=== PATIENT | female | born 1955 | race Caucasian/White ===

== ENCOUNTER → 2016-12-15 | Outpatient (CLI) | payer BC ==
--- NOTE | 2016-12-15 09:56 | MM ---
Reason for exam: additional evaluation requested from prior study. Last mammogram was performed 2 years ago. History: Patient is postmenopausal, has history of breast cancer at age 48, and had first child at age 30. Family history of breast cancer in maternal aunt at age 60. Excisional biopsy of the left breast, August 26, 2004. Malignant stereotactic core biopsy of the left breast, August 12, 2004. Lumpectomy of the left breast, 2004. Radiation therapy of the left breast, 2004. Core biopsy of the left breast. Taking tamoxifen for 5 years beginning at age 50. Physical Findings: Nurse did not find any significant physical abnormalities on exam. MG 3D Diag Mammo W/Cad JOVITA Bilateral CC and MLO view(s) were taken. Prior study comparison: December 04, 2014, bilateral MG diagnostic mammo w CAD JOVITA. July 18, 2013, CAD bilateral diagnostic mammogram. There are scattered fibroglandular densities. Finding: Architectural distortion in the left breast. No significant changes in finding since December 04, 2014 and July 18, 2013. These results were verbally communicated with the patient and result sheet given to the patient on 12/15/16. ASSESSMENT: Benign, BI-RAD 2 RECOMMENDATION: Follow-up diagnostic mammogram of both breasts in 1 year.
== END | disposition home or self-care (01) ==
LOC: RADMAMWWP 08:27
PROVIDERS: ATTEND Obstetrics & Gynecology
DX: R92.8 Other abnormal and inconclusive findings on diagnostic imaging of breast (principal)
CPT/HCPCS: G0204; G0279

== ENCOUNTER → 2016-12-15 | Outpatient (CLI) | payer BC ==
--- NOTE | 2016-12-15 14:08 | BD ---
EXAMINATION TYPE: MG DEXA axial skeleton. DATE OF EXAM: 12/15/2016 COMPARISON: NONE CLINICAL HISTORY: Postmenopausal female. Height: 5 FT 2 IN Weight: 128 FRAX RISK QUESTIONS: Alcohol (3 or more units per day): NO Family History (Parent hip fracture): YES Glucocorticoids (More than 3mos): NO (Ex: prednisone, prednisolone, methylprednisolone, dexamethasone, and hydrocortisone). History of Fracture in Adulthood: Secondary Osteoporosis: 1. Type 1 Diabetes: NO 2. Hyperthyroidism: NO 3. Menopause before 45: NO 4. Malnutrition: NO 5. Chronic liver disease: NO Rheumatoid Arthritis: NO Current Tobacco Use: NO RISK FACTORS HISTORY OF: Drink Alcohol: RARE GLASS OF WINE Active: YES Postmenopausal woman: EARLY 50'S MEDICATIONS: Thyroid Medications: YES Which medication: SYNTHROID How Lon YEARS Osteoporosis Medications: YES Which medication: FOSAMAX How Lon YRS Additional Medications: FOSAMAX, SYNTHROID,ATORVASTATIN, Additional History: BREAST CANCER 2004 RADIATION EXAM MEASUREMENTS: Bone mineral densitometry was performed using the [employer] System. Bone mineral density as measured about the Lumbar spine is: ----- L1-L4(G/cm2): 0.976 T Score Values are as follows: ----- L2: -2.0 ----- L3: -1.4 ----- L4: -2.0 ----- L1-L4: -1.7 Bone mineral density has: Decreased -4.4% since study of: 2013 Bone mineral density about the R hip (g/cm2): 0.650 Bone mineral density about the L hip (g/cm2): 0.670 T Score values are as follows: -----R Neck: -2.8 -----L Neck: -2.6 -----R Total: -2.3 -----L Total: -2.3 Bone mineral density has: Decreased -2.6% since study of: 2013 IMPRESSION: Osteoporosis (T Score less than -2.5) as noted by T Score values at the There is increased fracture risk and therapy is usually indicated based on age. Re-Screen 1-2 years. NOTE: T-SCORE=SD OF THE YOUNG ADULT MEAN.
== END | disposition home or self-care (01) ==
LOC: RADBDWWP 08:30
PROVIDERS: ATTEND Family Medicine
DX: M85.88 Other specified disorders of bone density and structure, other site (principal); Z88.2 Allergy status to sulfonamides
CPT/HCPCS: 77080

== ENCOUNTER → 2017-01-24 | Outpatient (CLI) | payer BC ==
[~2017-01-24] MED LIST: DENOSUMAB 60 MG/ML 1 ML SYRINGE SQ ONE
[2017-01-24 08:03] VITALS: BP 102/63; PULSE 61; RESP 16; TEMP 97.8
== END ==
LOC: PROCWHC3 07:38
PROVIDERS: ATTEND Family Medicine
DX: M81.0 Age-related osteoporosis without current pathological fracture (principal)
CPT/HCPCS: 96372; J0897

== ENCOUNTER 2017-08-01 22:00 | Emergency (ER) | payer BC ==
[2017-08-01] MEDS ORDERED: IPRATROPIUM-ALBUTEROL 3 ML NEB INHALATION STA (22:45)
--- NOTE | 2017-08-01 23:21 | XR ---
EXAM: XR Chest, 2 Views CLINICAL HISTORY: Reason: Pain TECHNIQUE: Frontal and lateral views of the chest. COMPARISON: 11/28/15 FINDINGS: Heart size borderline. No overt edema, consolidation or other acute cardiopulmonary process. IMPRESSION: No acute cardiopulmonary findings.
--- NOTE | 2017-08-01 23:25 | ED ---
URI HPI - General Chief Complaint: Upper Respiratory Infection Stated Complaint: chest congestion Time Seen by Provider: 08/01/17 22:31 Source: patient, RN notes reviewed, old records reviewed Mode of arrival: ambulatory - History of Present Illness Initial Comments: Patient is a 61 year old female with cough and congestion for one week. She has had intermittent fever, and took motrin prior to arrival. She states she has chest wall pain due to coughing. She denies any nausea, vomiting, chest pain, SOB. She states that she has a sore throat and sinus congestion as well. No history of smoking, she reports she is otherwise healthy. Denies any leg swelling, back pain, peripheral paresthesias. - Related Data Home Medications Medication Instructions Recorded Confirmed Atorvastatin [Lipitor] 10 mg PO HS 04/25/14 08/01/17 Levothyroxine Sodium [Synthroid] 25 mcg PO DAILY 04/25/14 08/01/17 Previous Rx's Medication Instructions Recorded Albuterol Inhaler [Ventolin Hfa 1 - 2 puff INHALATION Q6HR PRN #1 08/01/17 Inhaler] inhaler Azithromycin [Zithromax Z-pack] 0 mg PO DIRECTED #6 tab 08/01/17 Promethazine/Dextromethorphan 5 ml PO TID #120 ml 08/01/17 [Phenergan DM Syrup] methylPREDNISolone Dose Pack 4 mg PO DIRECTED #21 package 08/01/17 [Medrol Dose Pack] Allergies Allergy/AdvReac Type Severity Reaction Status Date / Time Sulfa (Sulfonamide Allergy Rash/Hives/ Verified 08/01/17 22:32 Antibiotics) Fever Review of Systems ROS Statement: Those systems with pertinent positive or pertinent negative responses have been documented in the HPI. ROS Other: All systems not noted in ROS Statement are negative. Past Medical History Past Medical History: Cancer, Hyperlipidemia, Hypertension, Thyroid Disorder Additional Past Medical History / Comment(s): breast ca History of Any Multi-Drug Resistant Organisms: None Reported Past Surgical History: Breast Surgery Past Psychological History: No Psychological Hx Reported Smoking Status: Never smoker Past Alcohol Use History: Rare Past Drug Use History: None Reported General Exam - General Exam Comments Initial Comments: This cody 61 year old female, no distress. General appearance: alert, in no apparent distress Head exam: Present: atraumatic, normocephalic, normal inspection Eye exam: Present: normal appearance, PERRL, EOMI. Absent: scleral icterus, conjunctival injection, periorbital swelling ENT exam: Present: normal exam, mucous membranes moist Neck exam: Present: normal inspection. Absent: tenderness, meningismus, lymphadenopathy Respiratory exam: Present: normal lung sounds bilaterally, other (Patient upper airways sound tight and congested. ). Absent: respiratory distress, wheezes, rales, rhonchi, stridor Cardiovascular Exam: Present: regular rate, normal rhythm, normal heart sounds. Absent: systolic murmur, diastolic murmur, rubs, gallop, clicks GI/Abdominal exam: Present: soft, normal bowel sounds. Absent: distended, tenderness, guarding, rebound, rigid Extremities exam: Present: normal inspection, full ROM, normal capillary refill. Absent: tenderness, pedal edema, joint swelling, calf tenderness Back exam: Present: normal inspection Neurological exam: Present: alert, oriented X3, CN II-XII intact Psychiatric exam: Present: normal affect, normal mood Skin exam: Present: warm, dry, intact, normal color. Absent: rash Course Vital Signs 08/01/17 08/01/17 08/01/17 22:19 22:58 23:05 Temperature 97.6 F Pulse Rate 67 84 88 Respiratory 18 Rate Blood Pressure 90/50 O2 Sat by Pulse 98 Oximetry 08/01/17 08/01/17 23:17 23:45 Temperature 97.3 F L Pulse Rate 69 Respiratory 20 18 Rate Blood Pressure 106/62 O2 Sat by Pulse 99 Oximetry Medical Decision Making - Medical Decision Making Patient reevaluated after breathing treatment, and reports she feels better. Influenza testing is negative. Patient CXR was reviewed and negative for any acute process. Veenatietrudy has dry staccato cough throughout ED stay. Patient will be treated for bronchitis with Zpak, medrol dose pack, inhaler, and cough syrup. Given dose of cough syrup in ED. PAtient understands treatment plan and will comply, discussed follow up with PCP and return parameters discussed. - Lab Data Lab Results 08/01/17 Range/Units 22:54 Influenza Type A RNA Not Detected (Not Detectd) Influenza Type B (PCR) Not Detected (Not Detectd) - Radiology Data Radiology results: report reviewed Interpreted by me: CXR reviewed and within normal limits. Disposition Clinical Impression: Bronchitis Disposition: HOME SELF-CARE Condition: Good Instructions: Acute Bronchitis (ED) Additional Instructions: Patient has a rest, increase fluids. Take the medications as prescribed. Return to the emergency department if any alarming signs or symptoms occur. Prescriptions: Albuterol Inhaler [Ventolin Hfa Inhaler] 1 - 2 puff INHALATION Q6HR PRN #1 inhaler PRN Reason: Shortness Of Breath Azithromycin [Zithromax Z-pack] 0 mg PO DIRECTED #6 tab methylPREDNISolone Dose Pack [Medrol Dose Pack] 4 mg PO DIRECTED #21 package Promethazine/Dextromethorphan [Phenergan DM Syrup] 5 ml PO TID #120 ml Referrals: Reese Olivares MD [Primary Care Provider] - 1-2 days Time of Disposition: 23:23
[2017-08-01 23:47] VITALS: BP 106/62; PULSE 69; RESP 18; TEMP 97.3
== END 2017-08-01 23:45 | disposition home or self-care (01) ==
LOC: EC 22:00
DX: J40 Bronchitis, not specified as acute or chronic (principal); E78.5 Hyperlipidemia, unspecified; E07.9 Disorder of thyroid, unspecified; Z85.3 Personal history of malignant neoplasm of breast; Z79.899 Other long term (current) drug therapy; Z88.2 Allergy status to sulfonamides
CPT/HCPCS: 71046; 87502; 94640; 99284

== ENCOUNTER 2017-11-27 00:04 | Emergency (ER) | payer BC ==
--- NOTE | 2017-11-27 01:08 | XR ---
EXAMINATION TYPE: XR chest 2V DATE OF EXAM: 11/27/2017 COMPARISON: 08/01/2017 HISTORY: Cough and congestion TECHNIQUE: Frontal and lateral views of the chest are obtained. FINDINGS: There is no heart failure nor confluent pneumonic infiltrate. Costophrenic angles are kristen r. Bony thorax is intact. Heart appears normal. IMPRESSION: Normal chest. No change.
[2017-11-27] MEDS ORDERED: AZITHROMYCIN 500 MG TAB PO STA (01:34)
--- NOTE | 2017-11-27 01:34 | ED ---
ENT HPI - General Chief complaint: ENT Stated complaint: congestion Time Seen by Provider: 11/27/17 00:21 Source: patient Mode of arrival: ambulatory Limitations: no limitations - History of Present Illness Initial comments: 62-year-old female patient presents to the emergency department today with complaints of cough, nasal congestion, facial pressure, and ear pain. Patient states that she has been sick with these symptoms for the last 8-10 days. Patient states that the cough seems to be worsening. States that she was coughing up yellow sputum. Patient states that she has had yellow nasal drainage as well. Patient states recently she has had fevers as high as 10 1F at home. She denies any headache, dizziness, shortness of breath, chest pain, numbness, or tingling. Patient denies any sick contacts. Patient denies any recent rash, abdominal pain, nausea, vomiting, diarrhea, constipation, back pain , hematuria, dysuria, urinary urgency, urinary frequency, headache, visual changes, or any other complaints. - Related Data Home Medications Medication Instructions Recorded Confirmed Atorvastatin [Lipitor] 10 mg PO HS 04/25/14 08/01/17 Levothyroxine Sodium [Synthroid] 25 mcg PO DAILY 04/25/14 08/01/17 Previous Rx's Medication Instructions Recorded Albuterol Inhaler [Ventolin Hfa 1 - 2 puff INHALATION Q6HR PRN #1 08/01/17 Inhaler] inhaler Azithromycin [Zithromax Z-pack] 0 mg PO DIRECTED #6 tab 08/01/17 Promethazine/Dextromethorphan 5 ml PO TID #120 ml 08/01/17 [Phenergan DM Syrup] methylPREDNISolone Dose Pack 4 mg PO DIRECTED #21 package 08/01/17 [Medrol Dose Pack] Azithromycin [Zithromax Z-pack] 0 mg PO DIRECTED #6 tab 11/27/17 Promethaz-Cod 6.25-10 mg/5 ml 5 ml PO Q6HR PRN #60 ml 11/27/17 [Phenergan with Codeine] Allergies Allergy/AdvReac Type Severity Reaction Status Date / Time Sulfa (Sulfonamide Allergy Rash/Hives/ Verified 11/27/17 00:09 Antibiotics) Fever Review of Systems ROS Statement: Those systems with pertinent positive or pertinent negative responses have been documented in the HPI. ROS Other: All systems not noted in ROS Statement are negative. Past Medical History Past Medical History: Cancer, Hyperlipidemia, Hypertension, Thyroid Disorder Additional Past Medical History / Comment(s): breast ca History of Any Multi-Drug Resistant Organisms: None Reported Past Surgical History: Breast Surgery Past Psychological History: No Psychological Hx Reported Smoking Status: Never smoker Past Alcohol Use History: Rare Past Drug Use History: None Reported General Exam Limitations: no limitations General appearance: alert, in no apparent distress, other (This is a well- developed, well-nourished adult female patient in no acute distress. Vital signs upon presentation are temperature 98.3F, pulse 63, respirations 16, blood pressure 117/56, pulse ox 97% on room air.) Eye exam: Present: normal appearance, PERRL, EOMI. Absent: scleral icterus, conjunctival injection, periorbital swelling ENT exam: Present: normal exam, normal oropharynx, mucous membranes moist, TM's normal bilaterally, other (There is frontal and maxillary sinus tenderness.) Neck exam: Present: normal inspection. Absent: tenderness, meningismus, lymphadenopathy Respiratory exam: Present: normal lung sounds bilaterally. Absent: respiratory distress, wheezes, rales, rhonchi, stridor Cardiovascular Exam: Present: regular rate, normal rhythm, normal heart sounds. Absent: systolic murmur, diastolic murmur, rubs, gallop, clicks GI/Abdominal exam: Present: soft, normal bowel sounds. Absent: distended, tenderness, guarding, rebound, rigid Neurological exam: Present: alert, oriented X3, CN II-XII intact Psychiatric exam: Present: normal affect, normal mood Skin exam: Present: warm, dry, intact, normal color. Absent: rash Course Vital Signs 11/27/17 11/27/17 00:06 01:48 Temperature 98.3 F 98.0 F Pulse Rate 63 72 Respiratory 16 18 Rate Blood Pressure 117/56 121/59 O2 Sat by Pulse 97 98 Oximetry Medical Decision Making - Medical Decision Making 62-year-old female patient presents to the emergency department today for evaluation of cough and nasal congestion. Physical examination is unremarkable. Lungs are clear to auscultation with good air movement. Patient' s vital signs are stable. No current fever. Chest x-ray was obtained and shows no acute cardiopulmonary process. Patient has had symptoms for the last 10 days as well as recent fevers. We'll treat patient for acute sinusitis with azithromycin. She'll be given a cough suppressant medication. Return parameters were discussed in detail. She is instructed to follow-up with her primary care physician for recheck in 1-2 days. She verbalizes understanding and agrees with this plan. - Lab Data Lab Results 11/27/17 Range/Units 00:54 Influenza Type A RNA Not Detected (Not Detectd) Influenza Type B (PCR) Not Detected (Not Detectd) - Radiology Data Radiology results: report reviewed, image reviewed Two-view x-ray of the chest is obtained. There is no heart failure nor confluent pneumonic infiltrate. Costophrenic angles are clear. Bony thorax is intact. Heart appears normal. Impression by Dr. Guzman shows normal chest with no change. Disposition Clinical Impression: Acute sinusitis Disposition: HOME SELF-CARE Condition: Good Instructions: Sinusitis (ED) Additional Instructions: Take medications as directed. Follow-up with your primary care physician for recheck in 1-2 days. Return here immediately for any new, worsening, or concerning symptoms Prescriptions: Azithromycin [Zithromax Z-pack] 0 mg PO DIRECTED #6 tab Promethaz-Cod 6.25-10 mg/5 ml [Phenergan with Codeine] 5 ml PO Q6HR PRN #60 ml PRN Reason: Cough Is patient prescribed a controlled substance at d/c from ED?: No Referrals: Reese Olivares MD [Primary Care Provider] - 1-2 days Time of Disposition: 01:34
[2017-11-27] MEDS ORDERED: PROMETHAZ-COD 6.25-10 MG/5 ML 5 ML CUP PO STA (01:40)
[2017-11-27 01:48] VITALS: BP 121/59; PULSE 72; RESP 18; TEMP 98
== END 2017-11-27 01:48 | disposition home or self-care (01) ==
LOC: EC 00:04
DX: J01.90 Acute sinusitis, unspecified (principal); H92.09 Otalgia, unspecified ear; E78.5 Hyperlipidemia, unspecified; I10 Essential (primary) hypertension; E07.9 Disorder of thyroid, unspecified; Z79.899 Other long term (current) drug therapy; Z88.2 Allergy status to sulfonamides; Z85.3 Personal history of malignant neoplasm of breast; Z98.890 Other specified postprocedural states
CPT/HCPCS: 71046; 87502; 99283

== ENCOUNTER 2017-12-02 10:59 | Emergency (ER) | payer BC ==
[2017-12-02 11:07] VITALS: BP 107/60; PULSE 60; RESP 18; TEMP 97.3
[2017-12-02] MEDS ORDERED: SODIUM CHLORIDE 0.9% 1,000 ML IV STA (11:27)
[2017-12-02] MEDS ORDERED: ONDANSETRON 4 MG/2 ML VIAL IVP STA ×2 (11:28→14:50)
[2017-12-02] MEDS ORDERED: MORPHINE SULFATE 4 MG/ML SYRINGE IVP STA (11:28)
--- NOTE | 2017-12-02 11:49 | ED ---
General Adult HPI - General Chief complaint: Abdominal Pain Stated complaint: gas/constipation Time Seen by Provider: 12/02/17 11:12 Source: patient, RN notes reviewed Mode of arrival: ambulatory Limitations: no limitations - History of Present Illness Initial comments: Patient is 62-year-old female status post colonoscopy 6 days, presents into the emergency room today with chief complaint of lower abdominal pain that started this morning. Patient states symptoms started approximately 3 hours ago. She does describe some pressure in the lower abdomen. States she's been unable to pass any gas. Patient does not that she had a routine scheduled colonoscopy 6 days ago. She states she was having bowel movements afterwards passing gas. Patient does admit to feeling a little nausea currently. She denies any other complaints or symptoms at this time. Patient denies any recent fever, chills, shortness of breath, chest pain, back pain, numbness or tingling , dysuria or hematuria, headaches or visual changes, or any other complaints. - Related Data Home Medications Medication Instructions Recorded Confirmed Atorvastatin [Lipitor] 10 mg PO HS 04/25/14 08/01/17 Levothyroxine Sodium [Synthroid] 25 mcg PO DAILY 04/25/14 08/01/17 Previous Rx's Medication Instructions Recorded Albuterol Inhaler [Ventolin Hfa 1 - 2 puff INHALATION Q6HR PRN #1 08/01/17 Inhaler] inhaler Promethazine/Dextromethorphan 5 ml PO TID #120 ml 08/01/17 [Phenergan DM Syrup] Promethaz-Cod 6.25-10 mg/5 ml 5 ml PO Q6HR PRN #60 ml 11/27/17 [Phenergan with Codeine] Ondansetron Odt [Zofran ODT] 4 mg PO Q8HR PRN #20 tab 12/02/17 Polyethylene Glycol 3350 [Miralax] 17 gm PO DAILY 5 Days packet 12/02/17 Allergies Allergy/AdvReac Type Severity Reaction Status Date / Time Sulfa (Sulfonamide Allergy Rash/Hives/ Verified 12/02/17 11:07 Antibiotics) Fever Review of Systems ROS Statement: Those systems with pertinent positive or pertinent negative responses have been documented in the HPI. ROS Other: All systems not noted in ROS Statement are negative. Past Medical History Past Medical History: Cancer, Hyperlipidemia, Hypertension, Thyroid Disorder Additional Past Medical History / Comment(s): breast ca History of Any Multi-Drug Resistant Organisms: None Reported Past Surgical History: Breast Surgery Past Psychological History: No Psychological Hx Reported Smoking Status: Never smoker Past Alcohol Use History: None Reported Past Drug Use History: None Reported General Exam - General Exam Comments Initial Comments: General: The patient is awake and alert, in no distress, and does not appear acutely ill. Eye: Pupils are equal, round and reactive to light, extra-ocular movements are intact. No nystagmus. There is normal conjunctiva bilaterally. No signs of icterus. Ears, nose, mouth and throat: There are moist mucous membranes and no oral lesions. Neck: The neck is supple, there is no tenderness or JVD. Cardiovascular: There is a regular rate and rhythm. No murmur, rub or gallop is appreciated. Respiratory: Lungs are clear to auscultation, respirations are non-labored, breath sounds are equal. No wheezes, stridor, rales, or rhonchi. Gastrointestinal: Abdomen soft on palpation. Increased tenderness to left lower and middle of the lower abdomen. No rebound tenderness. No guarding. Musculoskeletal: Normal ROM, no tenderness. Strength 5/5. Sensation intact. Pulses equal bilaterally 2+. Neurological: A&O x 3. CN II-XII intact, There are no obvious motor or sensory deficits. Coordination appears grossly intact. Speech is normal. Skin: Skin is warm and dry and no rashes or lesions are noted. Psychiatric: Cooperative, appropriate mood & affect, normal judgment. Limitations: no limitations Course Vital Signs 12/02/17 11:05 Temperature 97.3 F L Pulse Rate 60 Respiratory 18 Rate Blood Pressure 107/60 O2 Sat by Pulse 100 Oximetry - Reevaluation(s) Reevaluation #1: 12/02/17 13:36 Patient reexamined at this time shows no signs of distress. She is resting comfortably in the stretcher. She doesn't feel a little bit better at this time. CT of the abdomen and pelvis showing no acute abnormalities to account for the patient's symptoms. Patient's labs been reviewed. Unable to urine sample. She states that she has tried. Patient will be bladder scan by nursing staff. Patient will be given enema for her symptoms is a large amount of stool with no signs of obstruction at this time. Medical Decision Making - Medical Decision Making Patient reexamined at this time and is sitting comfortably on the stretcher. Patient does admit still experiencing some lower GI cramping. She states was given enema here in the emergency room was only able to have small bowel movement. Patient still feeling pressure. Patient unable to drink magnesium citrate. She states she tried but it was making her feel nauseous. Patient CT of the abdomen and pelvis shows no acute findings to account for the patient's symptoms. No sign of a blockage. Results were discussed with the patient. At this time patient will be discharged to continue a laxative at home. She is advised follow-up with her surgeon over the next 2 days if is still experiencing discomfort. Patient's vital stable. Advised return to emergency room symptoms increase worsen. Patient and at bedside state understanding and are in agreement. - Lab Data Result diagrams: 12/02/17 12:02 12/02/17 12:02 Lab Results 12/02/17 12/02/17 12/02/17 Range/Units 12:02 12:02 14:20 WBC 11.0 H (3.8-10.6) k/uL RBC 4.47 (3.80-5.40) m/uL Hgb 13.8 (11.4-16.0) gm/dL Hct 41.3 (34.0-46.0) % MCV 92.3 (80.0-100.0) fL MCH 30.9 (25.0-35.0) pg MCHC 33.5 (31.0-37.0) g/dL RDW 12.8 (11.5-15.5) % Plt Count 244 (150-450) k/uL Neutrophils % 77 % Lymphocytes % 17 % Monocytes % 3 % Eosinophils % 2 % Basophils % 0 % Neutrophils # 8.5 H (1.3-7.7) k/uL Lymphocytes # 1.8 (1.0-4.8) k/uL Monocytes # 0.4 (0-1.0) k/uL Eosinophils # 0.2 (0-0.7) k/uL Basophils # 0.0 (0-0.2) k/uL Sodium 137 (137-145) mmol/L Potassium 4.0 (3.5-5.1) mmol/L Chloride 102 (98-107) mmol/L Carbon Dioxide 24 (22-30) mmol/L Anion Gap 11 mmol/L BUN 24 H (7-17) mg/dL Creatinine 0.57 (0.52-1.04) mg/dL Est GFR (CKD-EPI)AfAm >90 (>60 ml/min/1.73 sqM) Est GFR (CKD-EPI)NonAf >90 (>60 ml/min/1.73 sqM) Glucose 108 H (74-99) mg/dL Calcium 9.0 (8.4-10.2) mg/dL Total Bilirubin 0.5 (0.2-1.3) mg/dL AST 28 (14-36) U/L ALT 35 (9-52) U/L Alkaline Phosphatase 41 (38-126) U/L Total Protein 6.7 (6.3-8.2) g/dL Albumin 4.2 (3.5-5.0) g/dL Amylase 89 (30-110) U/L Lipase 205 (23-300) U/L Urine Color Yellow Urine Appearance Clear (Clear) Urine pH 5.0 (5.0-8.0) Ur Specific Bee 1.016 (1.001-1.035) Urine Protein Negative (Negative) Urine Glucose (UA) Negative (Negative) Urine Ketones Negative (Negative) Urine Blood Negative (Negative) Urine Nitrite Negative (Negative) Urine Bilirubin Negative (Negative) Urine Urobilinogen <2.0 (<2.0) mg/dL Ur Leukocyte Esterase Negative (Negative) Disposition Clinical Impression: Abdominal pain Disposition: HOME SELF-CARE Condition: Good Instructions: Constipation (ED) Additional Instructions: Please use medication as discussed. Please follow-up with surgeon/family doctor in the next 2 days of symptoms have not improved. Please return to emergency room if the symptoms increase or worsen or for any other concerns. Prescriptions: Ondansetron Odt [Zofran ODT] 4 mg PO Q8HR PRN #20 tab PRN Reason: Nausea Polyethylene Glycol 3350 [Miralax] 17 gm PO DAILY 5 Days packet Is patient prescribed a controlled substance at d/c from ED?: No Referrals: Reese Olivares MD [Primary Care Provider] - 1-2 days Time of Disposition: 15:43
[2017-12-02 12:14] LABS: Basophils % (A) 0 %; Eosinophils # (A) 0.2 k/uL (0-0.7); Eosinophils % (A) 2 %; HCT 41.3 % (34.0-46.0); HGB 13.8 gm/dL (11.4-16.0); Lymphocytes # (A) 1.8 k/uL (1.0-4.8); Lymphocytes % (A) 17 %; MCH 30.9 pg (25.0-35.0); MCHC 33.5 g/dL (31.0-37.0); MCV 92.3 fL (80.0-100.0); Mean Platelet Volume 7.5; Monocytes # (A) 0.4 k/uL (0-1.0); Monocytes % (A) 3 %; Neutrophils # (A) 8.5 k/uL (1.3-7.7); Neutrophils % (A) 77 %; Platelet Count 244 k/uL (150-450); RBC 4.47 m/uL (3.80-5.40); RDW 12.8 % (11.5-15.5)
[2017-12-02 12:23] LABS: Albumin 4.2 g/dL (3.5-5.0); Amylase 89 U/L (30-110); Anion Gap 11 mmol/L; Carbon Dioxide 24 mmol/L (22-30); Chloride 102 mmol/L (98-107); Glucose 108 mg/dL (74-99); Lipase 205 U/L (23-300); Sodium 137 mmol/L (137-145); Total Bilirubin 0.5 mg/dL (0.2-1.3); Total Protein 6.7 g/dL (6.3-8.2)
[2017-12-02 12:28] LABS: ALT 35 U/L (9-52); AST 28 U/L (14-36); Alkaline Phosphatase 41 U/L (38-126); Blood Urea Nitrogen 24 mg/dL (7-17)
--- NOTE | 2017-12-02 12:44 | XR ---
EXAMINATION TYPE: XR KUB DATE OF EXAM: 12/02/2017 COMPARISON: 01/24/2010 INDICATION: Abdominal pain constipation TECHNIQUE: Single view abdomen upright view FINDINGS: There is a normal bowel gas pattern. There is moderate fecal retention. Psoas margins are normal. No organomegaly is present. There are 0.6 cm calcifications in the right hemipelvis which aren't interval change. IMPRESSION: 1. Nonspecific abdomen. 2. There is moderate fecal retention. 3. New calcifications are within the right hemipelvis.
--- NOTE | 2017-12-02 13:26 | CT ---
EXAMINATION TYPE: CT abdomen pelvis wo con DATE OF EXAM: 12/02/2017 COMPARISON: NONE INDICATION: recent colonoscopy. unable to urinate or pass gas. c/o lower abdominal pain. DLP: 317.8 mGycm, Automated exposure control for dose reduction was used. CONTRAST: 0 mL of Isovue 300. Study performed without Oral Contrast TECHNIQUE: Axial images were obtained from above the diaphragm to the pubic rami in the axial plane a t 5 mm thick sections. Reconstructed images are reviewed on the computer in the coronal plane. FINDINGS: Limited CT sections are obtained the lung bases. Mild infiltrates in the dependent right lower lobe. Correlate for atelectasis.. Coronary artery calcification is present. CT ABDOMEN: Liver: There is a 3.2 x 2.4 cm cyst measuring 10 Hounsfield units in the left lobe liver. An addition al 1.6 cm inferior pole right hepatic cysts may also be present measuring 12 Hounsfield units. Spleen: Normal Pancreas: Normal Adrenal glands: The adrenal glands are normal. Gallbladder: Normal Kidneys: No masses are evident. No hydronephrosis is present. No cysts are present. No renal stone s are identified. Studies performed without intravenous contrast. Aorta: Vascular calcification is within the aorta. Inferior vena cava: Normal. CT PELVIS: Loops of bowel within the abdomen and pelvis are normal. Study is without oral contrast limiting the evaluation. There are some scattered diverticuli within the sigmoid colon. Fecal debris is throug h the colon Appendix: Normal as visualized. Urinary bladder: Normal. Genitourinary structures: Uterus appears bulky. Adnexal regions are clear. Small amount of free fluid may be within the pelvis. Osseous structures: No suspicious lytic or sclerotic lesions. IMPRESSIONS: 1. Diverticulosis without acute diverticulitis. 2. Small amount of free fluid within the pelvis may be physiologic. 3. Hepatic cysts
[2017-12-02] MEDS ORDERED: MAGNESIUM CITRATE 296 ML BOTTLE PO ONE (13:35)
[2017-12-02 14:28] LABS: Appearance,Urine Clear (Clear); Bilirubin,Urine Negative (Negative); Blood,Urine Negative (Negative); Color,Urine Yellow; Glucose,Urine (UA) Negative (Negative); Ketones,Urine Negative (Negative); Leukocyte Esterase,Urine Negative (Negative); Nitrite,Urine Negative (Negative); Protein,Urine Negative (Negative); Specific Gravity,Urine 1.016 (1.001-1.035); Urobilinogen,Urine <2.0 mg/dL (<2.0)
== END 2017-12-02 15:55 | disposition home or self-care (01) ==
LOC: EC 10:59
DX: R10.30 Lower abdominal pain, unspecified (principal); R11.0 Nausea; E78.5 Hyperlipidemia, unspecified; I10 Essential (primary) hypertension; E07.9 Disorder of thyroid, unspecified; Z79.899 Other long term (current) drug therapy; Z88.2 Allergy status to sulfonamides; Z85.3 Personal history of malignant neoplasm of breast; Z98.890 Other specified postprocedural states
CPT/HCPCS: 51798; 36415; 80053; 82150; 83690; 85025; 81003; 74018; 74176; 99284; 96374; 96375; 96376; 96361; J2270; J2405

== ENCOUNTER 2017-12-03 17:23 | Inpatient (IN) | payer BC ==
[2017-12-03] MEDS ORDERED: MORPHINE SULFATE 4 MG/ML SYRINGE IVP STA (17:53)
[2017-12-03] MEDS ORDERED: ONDANSETRON 4 MG/2 ML VIAL IVP STA ×2 (17:53→20:19)
[2017-12-03] MEDS ORDERED: SODIUM CHLORIDE 0.9% 1,000 ML IV STA (17:53)
--- NOTE | 2017-12-03 17:56 | ED ---
Abdominal Pain HPI - General Chief Complaint: Abdominal Pain Stated Complaint: Abd Pain Time Seen by Provider: 12/03/17 17:39 Source: patient, RN notes reviewed, old records reviewed Mode of arrival: wheelchair Limitations: no limitations - History of Present Illness Initial Comments: This patient's a 62-year-old female presents to the emergency department today chief complaint of unable to have a bowel movement and having difficulty with urination for the past week. Patient reports that 6 days ago she had a colonoscopy by Dr. Florence. She states that since that time she has been having a difficult time with having a bowel movement. She's also had multiple episodes of vomiting. Anytime she's been eating or drinking anything it comes back up. She was evaluated emergency department yesterday. Was told that she could likely her symptoms are really related to constipation. She reports her abdomen is distended. She tried magnesium citrate and stool softeners at home but vomited them back up. Patient denies any fevers or chills. She states that she has not been passing any gas. - Related Data Home Medications Medication Instructions Recorded Confirmed Atorvastatin [Lipitor] 10 mg PO HS 04/25/14 12/03/17 Levothyroxine Sodium [Synthroid] 25 mcg PO DAILY 04/25/14 12/03/17 Previous Rx's Medication Instructions Recorded Albuterol Inhaler [Ventolin Hfa 1 - 2 puff INHALATION Q6HR PRN #1 08/01/17 Inhaler] inhaler Promethazine/Dextromethorphan 5 ml PO TID #120 ml 08/01/17 [Phenergan DM Syrup] Promethaz-Cod 6.25-10 mg/5 ml 5 ml PO Q6HR PRN #60 ml 11/27/17 [Phenergan with Codeine] Ondansetron Odt [Zofran ODT] 4 mg PO Q8HR PRN #20 tab 12/02/17 Polyethylene Glycol 3350 [Miralax] 17 gm PO DAILY 5 Days packet 12/02/17 Allergies Allergy/AdvReac Type Severity Reaction Status Date / Time Sulfa (Sulfonamide Allergy Rash/Hives/ Verified 12/03/17 17:27 Antibiotics) Fever Review of Systems ROS Statement: Those systems with pertinent positive or pertinent negative responses have been documented in the HPI. ROS Other: All systems not noted in ROS Statement are negative. Past Medical History Past Medical History: Cancer, Hyperlipidemia, Hypertension, Thyroid Disorder Additional Past Medical History / Comment(s): breast ca, constipation History of Any Multi-Drug Resistant Organisms: None Reported Past Surgical History: Breast Surgery Past Psychological History: No Psychological Hx Reported Smoking Status: Never smoker Past Alcohol Use History: None Reported Past Drug Use History: None Reported General Exam - General Exam Comments Initial Comments: 62-year-old female. Alert and oriented. Limitations: no limitations General appearance: alert, in no apparent distress Head exam: Present: atraumatic, normocephalic, normal inspection Eye exam: Present: normal appearance, PERRL, EOMI. Absent: scleral icterus, conjunctival injection, periorbital swelling ENT exam: Present: normal exam, mucous membranes moist Neck exam: Present: normal inspection Respiratory exam: Present: normal lung sounds bilaterally. Absent: respiratory distress, wheezes, rales, rhonchi, stridor Cardiovascular Exam: Present: regular rate, normal rhythm, normal heart sounds. Absent: systolic murmur, diastolic murmur, rubs, gallop, clicks GI/Abdominal exam: Present: distended, tenderness (Patient is tender, evidence of distention. Abdomen is tympanic to percussion.) Extremities exam: Present: normal inspection Back exam: Present: normal inspection Neurological exam: Present: alert, oriented X3, CN II-XII intact Psychiatric exam: Present: normal affect, normal mood Skin exam: Present: warm, dry, intact, normal color. Absent: rash Course Vital Signs 12/03/17 12/03/17 12/03/17 17:25 19:29 21:28 Temperature 98.0 F Pulse Rate 89 86 81 Respiratory 18 18 19 Rate Blood Pressure 95/50 94/57 99/49 O2 Sat by Pulse 97 98 96 Oximetry - Reevaluation(s) Reevaluation #1: 12/03/17 19:02 Critical value possible pneumoperitoneum was significantly by Dr. Master Glynn. He recommended CT. Reevaluation #2: 12/03/17 19:[address] results consistent with pneumoperitoneum. We'll start the Patient on Zosyn. Dr. Jung we will be contacting the on-call surgeon. Him currently waiting regulations from Dr. bryson. Medical Decision Making - Medical Decision Making 62-year-old female presents emergency room chief complaint of continued abdominal pain, unable have urine or stool output days post colonoscopy. Patient x-ray shows evidence of pneumoperitoneum. Recommended computed tomography scan. CT confirms pneumoperitoneum. On-call surgery was contacted. Dr. bryson was in to evaluate the Patient. He elected to concerned measures and antibiotics and bowel rest. Patient will be admitted this time. Was started on Zosyn. Blood cultures obtained. - Lab Data Result diagrams: 12/03/17 18:11 12/03/17 18:11 Lab Results 12/03/17 12/03/17 Range/Units 18:11 18:11 WBC 13.3 H (3.8-10.6) k/uL RBC 4.78 (3.80-5.40) m/uL Hgb 14.4 (11.4-16.0) gm/dL Hct 44.0 (34.0-46.0) % MCV 92.0 (80.0-100.0) fL MCH 30.1 (25.0-35.0) pg MCHC 32.7 (31.0-37.0) g/dL RDW 13.1 (11.5-15.5) % Plt Count 217 (150-450) k/uL Neutrophils % (Manual) 59 % Band Neutrophils % 28 % Lymphocytes % (Manual) 9 % Monocytes % (Manual) 4 % Metamyelocytes % 1 % Neutrophils # (Manual) 11.50 H (1.3-7.7) k/uL Lymphocytes # (Manual) 1.20 (1.0-4.8) k/uL Monocytes # (Manual) 0.53 (0-1.0) k/uL Metamyelocytes # (Man) 0.13 H (0) k/uL Nucleated RBCs 0 (0-0) /100 WBC Manual Slide Review Performed RBC Morphology Normal Sodium 134 L (137-145) mmol/L Potassium 4.3 (3.5-5.1) mmol/L Chloride 97 L (98-107) mmol/L Carbon Dioxide 26 (22-30) mmol/L Anion Gap 11 mmol/L BUN 38 H (7-17) mg/dL Creatinine 0.83 (0.52-1.04) mg/dL Est GFR (CKD-EPI)AfAm 87 (>60 ml/min/1.73 sqM) Est GFR (CKD-EPI)NonAf 75 (>60 ml/min/1.73 sqM) Glucose 99 (74-99) mg/dL Calcium 8.8 (8.4-10.2) mg/dL Total Bilirubin 1.0 (0.2-1.3) mg/dL AST 21 (14-36) U/L ALT 33 (9-52) U/L Alkaline Phosphatase 53 (38-126) U/L Total Protein 6.2 L (6.3-8.2) g/dL Albumin 3.7 (3.5-5.0) g/dL Amylase 66 (30-110) U/L Lipase 72 (23-300) U/L - Radiology Data Radiology results: report reviewed CT abdomen and pelvis shows evidence of pneumoperitoneum. Disposition Clinical Impression: ANNA (acute kidney injury), Pneumoperitoneum Disposition: ADMITTED IP TO THIS HOSP Condition: Stable Is patient prescribed a controlled substance at d/c from ED?: No When asked, does pt state using other controlled substances?: No If prescribed controlled substance>3 days was MAPS reviewed?: No If opioid is for acute pain is fill amount 7 days or less?: No If Rx opioid, was Start Talking consent form obtained?: No Referrals: Reese Olivares MD [Primary Care Provider] - 1-2 days Time of Disposition: 21:35
[2017-12-03 18:37] LABS: Albumin 3.7 g/dL (3.5-5.0); Calcium 8.8 mg/dL (8.4-10.2); Potassium 4.3 mmol/L (3.5-5.1); Total Protein 6.2 g/dL (6.3-8.2)
[2017-12-03 18:39] LABS: HGB 14.4 gm/dL (11.4-16.0); MCH 30.1 pg (25.0-35.0); MCHC 32.7 g/dL (31.0-37.0); Mean Platelet Volume 7.3; Platelet Count 217 k/uL (150-450); RBC 4.78 m/uL (3.80-5.40); RDW 13.1 % (11.5-15.5); WBC 13.3 k/uL (3.8-10.6)
--- NOTE | 2017-12-03 18:40 | XR ---
EXAMINATION TYPE: XR KUB DATE OF EXAM: 12/03/2017 COMPARISON: 12/02/2017 at 12:30 PM HISTORY: ABD pain and distention. Hx of colonoscopy 6 days ago. TECHNIQUE: 2 upright views FINDINGS: There is evidence suggesting pneumoperitoneum; would recommend CT characterization at this time. Results discussed with the ordering provider just now ,in order to help expedite clinical decis ion making. IMPRESSION: Suspect pneumoperitoneum; CT recommended as above.
[2017-12-03] MEDS ORDERED: RX INFO: IV CONTRAST WAS GIVEN 1 EACH MISC MISCELLANE PRN (18:42)
[2017-12-03 19:10] LABS: Band Neutrophils % 28 %; Metamyelocytes # (M) 0.13 k/uL (0); Metamyelocytes % 1 %; Monocytes # (M) 0.53 k/uL (0-1.0); Neutrophils % (M) 59 %; Nucleated Red Blood Cells 0 /100 WBC (0-0); Total Cells Counted 200
--- NOTE | 2017-12-03 19:20 | CT ---
EXAMINATION TYPE: CT abdomen pelvis w con DATE OF EXAM: 12/03/2017 COMPARISON: Today's radiographs, yesterday's CT. HISTORY: Abdominal distention, constipation CT DLP: 571.3 mGycm. Automated exposure control for dose reduction was used. TECHNIQUE: Helical acquisition of images was performed from the lung bases through the pelvis. CONTRAST: Performed without Oral Contrast and with IV Contrast, patient injected with 100 mL of Isovue 300. FINDINGS: PERITONEAL CAVITY: There is a mild-moderate volume of pneumoperitoneum on the present examination, re lated to both hemidiaphragms and also in the pelvis where there is a mild/moderate, both posterior an d anterior to the uterine fundus. In addition, gas is noted within the vaginal fornices. BOWEL: The sigmoid colon is prominently tortuous and has prominently ill-defined margins in several l ocations. Remainder of the bowel examination unremarkable, other than scattered diverticulosis. LUNG BASES: Mild right lung base atelectasis noted. Minimal left lung base atelectasis. LIVER/GB: The scattered simple hepatic cysts are redemonstrated. No significant abnormality is apprec iated. PANCREAS: No significant abnormality is seen. SPLEEN: No significant abnormality is seen. ADRENALS: No significant abnormality is seen. KIDNEYS: No significant abnormality is seen. ABDOMINAL ADENOPATHY: None visualized REPRODUCTIVE ORGANS: No significant abnormality is seen URINARY BLADDER: No significant abnormality is seen. PELVIC ADENOPATHY: None visualized. VASCULATURE: The vasculature the abdomen and pelvis is unremarkable. OSSEOUS STRUCTURES: No significant abnormality is seen. IMPRESSION: POSITIVE FOR PNEUMOPERITONEUM, WITH PERITONEAL FLUID IN THE LOWER PELVIS.
[2017-12-03] MEDS ORDERED: PIPERACILLIN-TAZOBACTAM 3.375 GM in DEXTROSE/WATER 1 50ML.BAG IVPB STA (19:36)
[2017-12-03] MEDS ORDERED: MORPHINE SULFATE 4 MG/ML SYRINGE IVP ONE (20:19)
[2017-12-03] MEDS ORDERED: ONDANSETRON 4 MG/2 ML VIAL IVP PRN (21:36)
[2017-12-03] MEDS ORDERED: MORPHINE SULFATE 4 MG/ML SYRINGE IV PRN (21:36)
[2017-12-03] MEDS ORDERED: LORazepam 2 MG/ML INJ IV PRN (21:36)
[2017-12-03] MEDS ORDERED: NALOXONE 0.4 MG/ML 1 ML VIAL IV PRN (21:36)
[2017-12-03] MEDS ORDERED: HYDROcodone/APAP 5-325MG 1 EACH TAB PO PRN (21:36)
[2017-12-03] MEDS ORDERED: ALBUTEROL NEBULIZED 2.5 MG/3 ML INHALATION PRN (21:38)
[2017-12-03 21:53] LABS: Appearance,Urine Clear (Clear); Bilirubin,Urine Negative (Negative); Blood,Urine Small (Negative); Color,Urine Yellow; Glucose,Urine (UA) Negative (Negative); Granular Casts,Urine 7 /lpf (0); Hyaline Casts,Urine 1 /lpf (0-2); Ketones,Urine 1+ (Negative); Leukocyte Esterase,Urine Negative (Negative); Mucus,Urine Rare /hpf; Nitrite,Urine Negative (Negative); PH, Urine 5.5 (5.0-8.0); Protein,Urine Trace (Negative); RBC,Urine 3 /hpf (0-5); Specific Gravity,Urine >1.050 (1.001-1.035); Urobilinogen,Urine <2.0 mg/dL (<2.0); WBC,Urine 4 /hpf (0-5)
--- NOTE | 2017-12-03 21:59 | P.GSCN ---
History of Present Illness Consult date: 12/03/17 History of present illness: This 62-year-old female who presents to the hospital with a chief complaint of constipation and abdominal pain. She recently had a colonoscopy 1 week ago on 11/26/2017. She states her last bowel movement was on 11/27/2017. Patient denies any history of GERD. She denies any history of peptic ulcer disease. She was in the hospital yesterday with a chief complaint constipation and sent home with laxatives. She denies any recent fevers or chills. She denies any nausea or vomiting. She states that her belly is distended. She returned to the emergency room today and imaging showed pneumoperitoneum. Surgery was then consulted. Past Medical History Past Medical History: Cancer, Hyperlipidemia, Hypertension, Thyroid Disorder Additional Past Medical History / Comment(s): breast ca, constipation History of Any Multi-Drug Resistant Organisms: None Reported Past Surgical History: Breast Surgery Past Psychological History: No Psychological Hx Reported Smoking Status: Never smoker Past Alcohol Use History: None Reported Past Drug Use History: None Reported Medications and Allergies Home Medications Medication Instructions Recorded Confirmed Type Atorvastatin [Lipitor] 10 mg PO HS 04/25/14 12/03/17 History Levothyroxine Sodium [Synthroid] 25 mcg PO DAILY 04/25/14 12/03/17 History Albuterol Inhaler [Ventolin Hfa 1 - 2 puff INHALATION Q6HR PRN #1 08/01/1712/03 Rx Inhaler] inhaler Promethazine/Dextromethorphan 5 ml PO TID #120 ml 08/01/17 12/03/17 Rx [Phenergan DM Syrup] Promethaz-Cod 6.25-10 mg/5 ml 5 ml PO Q6HR PRN #60 ml 11/27/17 12/03/17 Rx [Phenergan with Codeine] Ondansetron Odt [Zofran ODT] 4 mg PO Q8HR PRN #20 tab 12/02/17 12/03/17 Rx Polyethylene Glycol 3350 [Miralax] 17 gm PO DAILY 5 Days packet 12/02/17 Rx Allergies Allergy/AdvReac Type Severity Reaction Status Date / Time Sulfa (Sulfonamide Allergy Rash/Hives/ Verified 12/03/17 17:27 Antibiotics) Fever Surgical - Exam Osteopathic Statement: *. No significant issues noted on an osteopathic structural exam other than those noted in the History and Physical/Consult. Vital Signs Temp Pulse Resp BP Pulse Ox 98.0 F 89 18 95/50 97 12/03/17 17:25 12/03/17 17:25 12/03/17 17:25 12/03/17 17:25 12/03/17 17:25 - General well developed, well nourished, no distress - ENT normal pinna, normal nares, normal mucosa - Neck no masses, trachea midline - Respiratory normal expansion, normal respiratory effort - Cardiovascular Heart Rate: 70 Rhythm: regular - Abdomen Abdomen soft and moderately distended tender to palpation worse in the lower left and lower right quadrant. No rigidity or guarding at this time - Neurologic normal coordination, normal sensation - Musculoskeletal normal gait - Psychiatric oriented to time, oriented to person, oriented to place Results - Labs 12/03/17 18:11 12/03/17 18:11 Abnormal Lab Results - Last 24 Hours (Table) 12/03/17 12/03/17 Range/Units 18:11 18:11 WBC 13.3 H (3.8-10.6) k/uL Neutrophils # (Manual) 11.50 H (1.3-7.7) k/uL Metamyelocytes # (Man) 0.13 H (0) k/uL Sodium 134 L (137-145) mmol/L Chloride 97 L (98-107) mmol/L BUN 38 H (7-17) mg/dL Total Protein 6.2 L (6.3-8.2) g/dL Diabetes panel 12/03/17 Range/Units 18:11 Sodium 134 L (137-145) mmol/L Potassium 4.3 (3.5-5.1) mmol/L Chloride 97 L (98-107) mmol/L Carbon Dioxide 26 (22-30) mmol/L BUN 38 H (7-17) mg/dL Creatinine 0.83 (0.52-1.04) mg/dL Glucose 99 (74-99) mg/dL Calcium 8.8 (8.4-10.2) mg/dL AST 21 (14-36) U/L ALT 33 (9-52) U/L Alkaline Phosphatase 53 (38-126) U/L Total Protein 6.2 L (6.3-8.2) g/dL Albumin 3.7 (3.5-5.0) g/dL Calcium panel 12/03/17 Range/Units 18:11 Calcium 8.8 (8.4-10.2) mg/dL Albumin 3.7 (3.5-5.0) g/dL Pituitary panel 12/03/17 Range/Units 18:11 Sodium 134 L (137-145) mmol/L Potassium 4.3 (3.5-5.1) mmol/L Chloride 97 L (98-107) mmol/L Carbon Dioxide 26 (22-30) mmol/L BUN 38 H (7-17) mg/dL Creatinine 0.83 (0.52-1.04) mg/dL Glucose 99 (74-99) mg/dL Calcium 8.8 (8.4-10.2) mg/dL Adrenal panel 12/03/17 Range/Units 18:11 Sodium 134 L (137-145) mmol/L Potassium 4.3 (3.5-5.1) mmol/L Chloride 97 L (98-107) mmol/L Carbon Dioxide 26 (22-30) mmol/L BUN 38 H (7-17) mg/dL Creatinine 0.83 (0.52-1.04) mg/dL Glucose 99 (74-99) mg/dL Calcium 8.8 (8.4-10.2) mg/dL Total Bilirubin 1.0 (0.2-1.3) mg/dL AST 21 (14-36) U/L ALT 33 (9-52) U/L Alkaline Phosphatase 53 (38-126) U/L Total Protein 6.2 L (6.3-8.2) g/dL Albumin 3.7 (3.5-5.0) g/dL - Imaging Abdominal x-ray: report reviewed, image reviewed CT scan - abdomen: report reviewed, image reviewed CT scan - pelvis: report reviewed, image reviewed Assessment and Plan Assessment: Pneumoperitoneum history of colonoscopy 1 week ago Plan: I had a lengthy discussion with the patient regarding her condition. I discussed with her our options including going to surgery tonight for washout and possible repair of perforation possible bowel resection and possible ostomy , or attempting to manage this conservatively with bowel rest fluids and antibiotics. The risks and benefits of both operative and nonoperative management were discussed and the patient and her elected for nonoperative management at this time. I discussed with the patient we will do serial abdominal exams and reevaluate. Should her condition worsen, where she become peritoneal we will then elect for surgery. The patient and her agreed with this plan. Patient will be made nothing by mouth started on IV fluids and IV Zosyn. We'll perform serial abdominal exams. Further recommendations to follow.
[2017-12-03] MEDS: HEPARIN SODIUM,PORCINE 5,000 UNIT/ML 1 ML VIAL SQ SCH (23:23)
[2017-12-04] MEDS: HEPARIN SODIUM,PORCINE 5,000 UNIT/ML 1 ML VIAL SQ SCH ×4 (01:08→23:01)
[2017-12-04] MEDS: SODIUM CHLORIDE 0.9% 1,000 ML IV SCH ×5 (05:24→22:22)
[2017-12-04] MEDS: HYDROmorphone 0.5 MG/0.5 ML SYRINGE IVP PRN ×4 (06:49→23:01)
--- NOTE | 2017-12-04 08:38 | P.PN ---
Subjective Progress Note Date: 12/04/17 Principal diagnosis: pneumoperitoneum The patient is seen on rounds. She was admitted through the emergency department last night with free air. One week status post colonoscopy. Began having some constipation which she describes as pressure on Sunday and Sunday. Sunday morning she had pain and came into the emergency department. She was worked up and discharged home. She returned yesterday with findings of free air. She is feeling better today. No nausea or vomiting. Objective - Vital Signs Vital signs: Vital Signs Temp 98.7 F 12/04/17 06:20 Pulse 101 H 12/04/17 06:20 Resp 18 12/04/17 06:20 BP 97/49 12/04/17 06:20 Pulse Ox 94 L 12/04/17 06:20 Intake & Output 12/03/17 12/04/17 12/04/17 18:59 06:59 18:59 Output Total 625 Balance -625 Weight 58.06 kg Output: Urine 625 Other: Voiding Method Self-Catheterization - Constitutional General appearance: Present: cooperative, no acute distress - Respiratory Respiratory: bilateral: CTA - Gastrointestinal General gastrointestinal: Present: decreased bowel sounds, distended ( Moderately distended and tympanitic), tenderness (Mild diffuse tenderness without guarding or rebound) - Labs CBC & Chem 7: 12/03/17 18:11 12/03/17 18:11 Labs: Abnormal Lab Results - Last 24 Hours (Table) 12/03/17 12/03/17 12/03/17 Range/Units 18:11 18:11 21:37 WBC 13.3 H (3.8-10.6) k/uL Neutrophils # (Manual) 11.50 H (1.3-7.7) k/uL Metamyelocytes # (Man) 0.13 H (0) k/uL Sodium 134 L (137-145) mmol/L Chloride 97 L (98-107) mmol/L BUN 38 H (7-17) mg/dL Total Protein 6.2 L (6.3-8.2) g/dL Ur Specific [place] >1.050 H (1.001-1.035) Urine Protein Trace H (Negative) Urine Ketones 1+ H (Negative) Urine Blood Small H (Negative) Urine Mucus Rare H (None) /hpf Assessment and Plan (1) Pneumoperitoneum Current Visit: Yes Status: Acute Code(s): K66.8 - OTHER SPECIFIED DISORDERS OF PERITONEUM SNOMED Code(s): 19086636 (2) Abdominal pain Current Visit: No Status: Acute Code(s): R10.9 - UNSPECIFIED ABDOMINAL PAIN SNOMED Code(s): 77189964 Plan: The patient clinically feels better today. We'll continue IV antibiotics and bowel rest. Serial exams. Check her lab later today. If she shows any sign of decompensation she may need to go the OR. Questions were encouraged and answered.
[2017-12-04 08:59] LABS: Anion Gap 12 mmol/L; Blood Urea Nitrogen 28 mg/dL (7-17); Calcium 8.1 mg/dL (8.4-10.2); Carbon Dioxide 22 mmol/L (22-30); Chloride 102 mmol/L (98-107); Glucose 80 mg/dL (74-99); Potassium 3.7 mmol/L (3.5-5.1); Sodium 136 mmol/L (137-145)
[2017-12-04 09:13] LABS: Basophils % (A) 0 %; Eosinophils % (A) 0 %; HGB 12.5 gm/dL (11.4-16.0); Lymphocytes # (A) 0.7 k/uL (1.0-4.8); Lymphocytes % (A) 5 %; MCH 29.8 pg (25.0-35.0); MCHC 32.2 g/dL (31.0-37.0); MCV 92.5 fL (80.0-100.0); Mean Platelet Volume 8.1; Monocytes # (A) 0.5 k/uL (0-1.0); Monocytes % (A) 4 %; Neutrophils # (A) 13.4 k/uL (1.3-7.7); Neutrophils % (A) 91 %; Platelet Count 202 k/uL (150-450); RBC 4.21 m/uL (3.80-5.40); RDW 13.3 % (11.5-15.5); WBC 14.7 k/uL (3.8-10.6)
[2017-12-04] MEDS: PANTOPRAZOLE 40 MG/10 ML VIAL IV SCH (09:59)
[2017-12-04] MEDS: metroNIDAZOLE-NS PMX 500 MG in SALINE 1 100ML.BAG IVPB SCH ×3 (11:23→23:00)
[2017-12-04] MEDS: PIPERACILLIN-TAZOBACTAM 3.375 GM in DEXTROSE/WATER 1 50ML.BAG IVPB SCH ×2 (11:24→16:08)
[2017-12-04] MEDS: ONDANSETRON 4 MG/2 ML VIAL IVP PRN ×2 (16:40→23:01)
--- NOTE | 2017-12-04 21:27 | HP ---
HISTORY AND PHYSICAL CHIEF COMPLAINT: Abdominal pain. HISTORY OF PRESENT ILLNESS: This is another admission for this 62-year-old white female. She underwent routine colonoscopy several days ago after which she did well. She then developed some abdominal discomfort and came to emergency room where she was found to have free air in the abdomen. She has had no fever, chills, nausea, vomiting, etc. She has had no other complaints. REVIEW OF SYSTEMS: She has had no other difficulty. She has otherwise been in fairly good health. She does have osteoporosis and hypothyroidism. She had no GI complaints or problems. Past medical history, family history personal and social histories reveal that SHE IS ALLERGIC TO SULFA. She is on vitamin D, Lipitor, and Synthroid. The history is otherwise unremarkable. She has had a left breast lumpectomy. She does not smoke or drink. PHYSICAL EXAM: Blood pressure is 100/74 with a pulse 64, respirations 10 of 2018, and she is afebrile. GENERAL: In general, she appeared to be well developed, well nourished, no acute distress. SKIN: Color is normal skin is warm and dry. LYMPH nodes are not enlarged. HEENT: Head, ears, eyes, nose, mouth, throat are normal. NECK veins not distended. Thyroid is not enlarged. CHEST is clear to auscultation and percussion. CARDIAC EXAM is normal. ABDOMEN is soft and nontender. Slightly distended. Bowel sounds are heard. EXTREMITIES are normal. NEUROLOGICAL: She is intact. IMPRESSION: 1. Probable perforation of the colon, asymptomatic so far. 2. Hypothyroidism. 3. Osteoporosis. PLAN: 1. Bed rest. 2. IV fluids. 3. N.p.o. 4. Surgery consult. 5. Antibiotics. 6. If she has any further difficulty, she may require surgical intervention, but she is doing very well for the time being. MMODL / IJN: [id number] /
--- NOTE | 2017-12-04 22:03 | PN ---
PROGRESS NOTE DATE OF SERVICE: 12/04/17 CHIEF COMPLAINT: Perforated viscus. HISTORY OF PRESENT ILLNESS: This lady is doing well. She has had no fever, chills, abdominal pain, nausea, vomiting, etc. She has been seen by Surgery. PHYSICAL EXAM: CHEST: Clear. Cardiac exam is normal. Abdomen is soft and slightly distended. Bowel sounds are heard. IMPRESSION: Perforated viscus. PLAN: Continue to follow her abdominal findings with General surgery. She is doing well. MMODL / IJN: [id number] /
[2017-12-05] MEDS: PIPERACILLIN-TAZOBACTAM 3.375 GM in DEXTROSE/WATER 1 50ML.BAG IVPB SCH ×4 (00:20→23:01)
[2017-12-05] MEDS: HYDROmorphone 0.5 MG/0.5 ML SYRINGE IVP PRN ×4 (06:13→23:01)
[2017-12-05] MEDS: ONDANSETRON 4 MG/2 ML VIAL IVP PRN ×4 (06:13→23:04)
[2017-12-05] MEDS: SODIUM CHLORIDE 0.9% 1,000 ML IV SCH ×3 (06:17→21:22)
[2017-12-05] MEDS: metroNIDAZOLE-NS PMX 500 MG in SALINE 1 100ML.BAG IVPB SCH ×3 (08:03→23:00)
[2017-12-05] MEDS: HEPARIN SODIUM,PORCINE 5,000 UNIT/ML 1 ML VIAL SQ SCH ×3 (08:03→23:00)
[2017-12-05] MEDS: PANTOPRAZOLE 40 MG/10 ML VIAL IV SCH (08:03)
[2017-12-05] MEDS ORDERED: BISACODYL 10 MG SUPP RECTAL STA (09:52)
--- NOTE | 2017-12-05 09:56 | P.PN ---
Subjective Progress Note Date: 12/05/17 Principal diagnosis: pneumoperitoneum The patient was seen yesterday evening and this morning on rounds. The pain is overall much better. No flatus yet but it feels as though she needs to have a bowel movement. It feels "hard" and she is asking about a suppository. Denies fevers or chills. She still having slight nausea. Not hungry yet. Objective - Vital Signs Vital signs: Vital Signs Temp 98.9 F 12/05/17 05:15 Pulse 91 12/05/17 05:15 Resp 16 12/05/17 05:15 BP 113/53 12/05/17 05:15 Pulse Ox 96 12/05/17 05:15 Intake & Output 12/04/17 12/05/17 12/05/17 18:59 06:59 18:59 Intake Total 900 0 Output Total 1050 Balance 900 -1050 Intake: Intake, IV Titration 900 Amount Piperacillin-Tazobactam 3 100 .375 gm In Dextrose/Water 1 50ml.bag @ 12.5 mls/hr IVPB Q8HR [facility] Rx#: [id number] Sodium Chloride 0.9% 1, 600 000 ml @ 125 mls/hr IV . Q8H [facility] Rx#:[id number] metroNIDAZOLE-NS PMX 500 200 mg In Saline 1 100ml.bag @ 100 mls/hr IVPB Q8HR [facility] Rx#:[id number] Oral 0 Output: Urine 1050 Other: Voiding Method Indwelling Catheter Indwelling Catheter Indwelling Catheter # Voids 3 1 # Bowel Movements 1 - Constitutional General appearance: Present: cooperative, no acute distress - Respiratory Respiratory: bilateral: CTA - Cardiovascular Rhythm: regular - Gastrointestinal General gastrointestinal: Present: decreased bowel sounds (Slightly improved from yesterday), distended, tenderness (Mild tenderness to deep palpation in left lower quadrant. Yesterday she had some tenderness to percussion but that is improved today) - Labs CBC & Chem 7: 12/04/17 07:30 12/04/17 07:30 Labs: Microbiology - Last 24 Hours (Table) 12/03/17 20:00 Blood Culture - Preliminary Blood No Growth after 24 hours Assessment and Plan (1) Pneumoperitoneum Current Visit: Yes Status: Acute Code(s): K66.8 - OTHER SPECIFIED DISORDERS OF PERITONEUM SNOMED Code(s): 46337714 (2) Abdominal pain Current Visit: No Status: Acute Code(s): R10.9 - UNSPECIFIED ABDOMINAL PAIN SNOMED Code(s): 85441586 Plan: Clinically the patient is improving. Continue the antibiotics and bowel rest until bowel function resumes. Encouraged activity. We'll give Dulcolax suppository. Progressing well.
[2017-12-05] MEDS: LEVOTHYROXINE 25 MCG TAB PO SCH (10:54)
--- NOTE | 2017-12-05 20:31 | PN ---
PROGRESS NOTE DATE OF SERVICE: 12/05/17. CHIEF COMPLAINT: Perforated viscus. HISTORY OF PRESENT ILLNESS: This lady is doing fairly well but still has some bloating, but no fever or chills and no significant pain. She is being followed by the surgeon. PHYSICAL EXAM: CHEST: Clear. Cardiac exam is normal. Abdomen is a little bit distended. Bowel sounds present. IMPRESSION: Perforated viscus with probable spontaneous closure without peritonitis. PLAN: Continue with conservative management and antibiotics and she will go home when she is cleared by her surgeon. MMODL / IJN: [id number] /
[2017-12-05] MEDS: ATORVASTATIN 10 MG TAB PO SCH (21:23)
[2017-12-06] MEDS: ONDANSETRON 4 MG/2 ML VIAL IVP PRN ×3 (07:48→18:42)
[2017-12-06] MEDS: HYDROmorphone 0.5 MG/0.5 ML SYRINGE IVP PRN (07:48)
[2017-12-06] MEDS: PANTOPRAZOLE 40 MG/10 ML VIAL IV SCH (07:50)
[2017-12-06] MEDS: metroNIDAZOLE-NS PMX 500 MG in SALINE 1 100ML.BAG IVPB SCH ×2 (07:50→15:27)
[2017-12-06] MEDS: PIPERACILLIN-TAZOBACTAM 3.375 GM in DEXTROSE/WATER 1 50ML.BAG IVPB SCH ×3 (07:50→23:45)
[2017-12-06] MEDS: HEPARIN SODIUM,PORCINE 5,000 UNIT/ML 1 ML VIAL SQ SCH ×3 (07:51→23:45)
[2017-12-06] MEDS: SODIUM CHLORIDE 0.9% 1,000 ML IV SCH ×4 (08:43→16:17)
[2017-12-06] MEDS: LEVOTHYROXINE 25 MCG TAB PO SCH (08:46)
[2017-12-06] MEDS ORDERED: BISACODYL 10 MG SUPP RECTAL STA (09:48)
--- NOTE | 2017-12-06 09:52 | P.PN ---
Subjective Progress Note Date: 12/06/17 Principal diagnosis: pneumoperitoneum The patient is seen on rounds. She is feeling better, passing gas and had small bowel movement yesterday. She feels less distended. Denies nausea or vomiting. Objective - Vital Signs Vital signs: Vital Signs Temp 99.0 F 12/06/17 06:31 Pulse 78 12/06/17 06:31 Resp 15 12/06/17 06:31 BP 99/53 12/06/17 06:31 Pulse Ox 96 12/06/17 06:31 Intake & Output 12/05/17 12/06/17 12/06/17 18:59 06:59 18:59 Intake Total 1150 150 Output Total 600 450 Balance -600 700 150 Intake: Intake, IV Titration 1150 150 Amount Piperacillin-Tazobactam 3 50 50 .375 gm In Dextrose/Water 1 50ml.bag @ 12.5 mls/hr IVPB Q8HR [facility] Rx#: [id number] Sodium Chloride 0.9% 1, 1000 000 ml @ 125 mls/hr IV . Q8H [facility] Rx#:[id number] metroNIDAZOLE-NS PMX 500 100 100 mg In Saline 1 100ml.bag @ 100 mls/hr IVPB Q8HR [facility] Rx#:[id number] Output: Urine 600 450 Other: Voiding Method Indwelling Catheter Indwelling Catheter # Voids 2 - Constitutional General appearance: Present: cooperative, no acute distress - Respiratory Respiratory: bilateral: CTA - Cardiovascular Rhythm: regular - Gastrointestinal General gastrointestinal: Present: distended (Distention is less), normal bowel sounds, tenderness (Minimal tenderness. No peritoneal signs.) - Labs CBC & Chem 7: 12/04/17 07:30 12/04/17 07:30 Labs: Microbiology - Last 24 Hours (Table) 12/03/17 20:00 Blood Culture - Preliminary Blood No Growth after 48 hours Assessment and Plan (1) Pneumoperitoneum Current Visit: Yes Status: Acute Code(s): K66.8 - OTHER SPECIFIED DISORDERS OF PERITONEUM SNOMED Code(s): 87678311 (2) Abdominal pain Current Visit: No Status: Acute Code(s): R10.9 - UNSPECIFIED ABDOMINAL PAIN SNOMED Code(s): 86216539 Plan: We discussed things with the patient. Her abdominal exam is improving and she is beginning to have bowel function. We'll check x-ray as a follow-up. Continue antibiotics. Will start clear liquid diet. Progressing slowly.
[2017-12-06] MEDS: HYDROmorphone 4 MG TABLET PO PRN ×2 (13:05→18:42)
--- NOTE | 2017-12-06 14:49 | XR ---
EXAMINATION TYPE: XR abdomen 2V DATE OF EXAM: 12/06/2017 2:01 PM CLINICAL HISTORY: Follow-up after perforation of cholecystectomy. TECHNIQUE: Single supine KUB image of the abdomen is obtained. COMPARISON: 12/04/2015. FINDINGS: Pneumoperitoneum is noted below both hemidiaphragms on the upright image, right greater mikhail n left. Moderate degree of retained colonic stool is seen throughout the colon with no dilation. Nume morris calcifications are present in the pelvis as seen on the prior. Scattered gas is seen in non-dist ended small bowel loops. Gas and fecal material is seen in non-distended colon. The lung bases are cl ear and the osseous structures are intact. IMPRESSION: Decrease in degree of pneumoperitoneum status post known bowel perforation. Continued rosa veillance is recommended.
[2017-12-06 15:12] VITALS: BMI 22.6
--- NOTE | 2017-12-06 18:08 | PN ---
PROGRESS NOTE DATE OF SERVICE: 12/06/2017. CHIEF COMPLAINT: Perforated viscus. HISTORY OF PRESENT ILLNESS: This lady is doing well and abdominal distention is going down. She is urinating and passing small amounts of stool. She has no nausea, fever and chills, etc. PHYSICAL EXAM: Her chest is clear. Cardiac is normal. The abdomen is slightly distended, but less so than yesterday. Bowel sounds are heard. IMPRESSION: Perforated viscus. PLAN: Continue to monitor closely and she can go home when she is cleared by Surgery. MMODL / IJN: [id number] /
[2017-12-06] MEDS: ATORVASTATIN 10 MG TAB PO SCH (21:45)
[2017-12-06] MEDS: metroNIDAZOLE 500 MG TAB PO SCH (22:13)
[2017-12-07] MEDS: LEVOTHYROXINE 25 MCG TAB PO SCH (06:42)
[2017-12-07] MEDS: PANTOPRAZOLE 40 MG TABLET PO SCH (08:55)
[2017-12-07] MEDS: metroNIDAZOLE 500 MG TAB PO SCH ×3 (08:56→21:35)
[2017-12-07] MEDS: PIPERACILLIN-TAZOBACTAM 3.375 GM in DEXTROSE/WATER 1 50ML.BAG IVPB SCH ×3 (08:56→23:10)
[2017-12-07] MEDS: HEPARIN SODIUM,PORCINE 5,000 UNIT/ML 1 ML VIAL SQ SCH ×3 (08:56→23:10)
[2017-12-07] MEDS: SODIUM CHLORIDE 0.9% 1,000 ML IV SCH ×2 (08:59→23:15)
[2017-12-07] MEDS ORDERED: BISACODYL 5 MG TABLET.DR PO ONE (12:34)
--- NOTE | 2017-12-07 12:38 | P.PN ---
Subjective Progress Note Date: 12/07/17 Principal diagnosis: pneumoperitoneum The patient is seen on rounds. She's having very minimal pain. Has not needed anything for pain or nausea since chest today. Tolerating full liquids. Ambulating well. No significant bowel movement. Objective - Vital Signs Vital signs: Vital Signs Temp 97.4 F L 12/07/17 05:40 Pulse 75 12/07/17 08:00 Resp 18 12/07/17 08:00 BP 121/71 12/07/17 05:40 Pulse Ox 96 12/07/17 05:40 Intake & Output 12/06/17 12/07/17 12/07/17 18:59 06:59 18:59 Intake Total 1060 450 Output Total 600 Balance 460 450 Weight 58.06 kg Intake: Intake, IV Titration 700 450 Amount Piperacillin-Tazobactam 3 100 50 .375 gm In Dextrose/Water 1 50ml.bag @ 12.5 mls/hr IVPB Q8HR [facility] Rx#: [id number] Sodium Chloride 0.9% 1, 400 400 000 ml @ 50 mls/hr IV . Q20H [facility] Rx#:[id number] metroNIDAZOLE-NS PMX 500 200 mg In Saline 1 100ml.bag @ 100 mls/hr IVPB Q8HR [facility] Rx#:[id number] Oral 360 Output: Urine 600 Other: Voiding Method Toilet Toilet Toilet # Voids 3 2 - Constitutional General appearance: Present: cooperative, no acute distress - Respiratory Respiratory: bilateral: CTA - Cardiovascular Rhythm: regular - Gastrointestinal General gastrointestinal: Present: distended (But less so than yesterday), normal bowel sounds, tenderness (3 minimal without guarding or rebound) - Labs CBC & Chem 7: 12/04/17 07:30 12/04/17 07:30 Labs: Microbiology - Last 24 Hours (Table) 12/03/17 20:00 Blood Culture - Preliminary Blood No Growth after 72 hours - Imaging and Cardiology Abdominal x-ray: report reviewed, image reviewed Assessment and Plan (1) Pneumoperitoneum Current Visit: Yes Status: Acute Code(s): K66.8 - OTHER SPECIFIED DISORDERS OF PERITONEUM SNOMED Code(s): 03269445 (2) Abdominal pain Current Visit: No Status: Acute Code(s): R10.9 - UNSPECIFIED ABDOMINAL PAIN SNOMED Code(s): 92554272 Plan: Clinically the patient's much improved. There was less free air on her acute abdominal series. She has a moderately large amount of stool in the right colon. The diet will be advanced. We'll start her on some scheduled MiraLAX. Oral Dulcolax today. Hopefully ready for discharge in the next day or 2.
[2017-12-07] MEDS: POLYETHYLENE GLYCOL 3350 17 GM POWD.PACK PO SCH (13:52)
--- NOTE | 2017-12-07 17:03 | PN ---
PROGRESS NOTE CHIEF COMPLAINT: Perforated viscus. HISTORY OF PRESENT ILLNESS: This lady is doing well. She has had no fever, chills, abdominal pain, etc. PHYSICAL EXAMINATION: CHEST: Clear. Cardiac exam is normal. Abdomen is soft and nontender. IMPRESSION: Perforated viscus. PLAN: 1. Progress activity and diet. 2. Home as soon as she is cleared by Surgery. MMODL / IJN: [id number] /
[2017-12-07] MEDS: ATORVASTATIN 10 MG TAB PO SCH (20:32)
[2017-12-08 01:13] VITALS: RESP 16
[2017-12-08] MEDS: LEVOTHYROXINE 25 MCG TAB PO SCH (06:33)
[2017-12-08] MEDS: PANTOPRAZOLE 40 MG TABLET PO SCH (06:33)
[2017-12-08 07:53] VITALS: BP 107/58; PULSE 77; TEMP 97.4
[2017-12-08] MEDS: HEPARIN SODIUM,PORCINE 5,000 UNIT/ML 1 ML VIAL SQ SCH ×2 (08:21→14:16)
[2017-12-08] MEDS: metroNIDAZOLE 500 MG TAB PO SCH ×2 (08:21→14:16)
[2017-12-08] MEDS: PIPERACILLIN-TAZOBACTAM 3.375 GM in DEXTROSE/WATER 1 50ML.BAG IVPB SCH ×2 (08:21→14:16)
[2017-12-08] MEDS: POLYETHYLENE GLYCOL 3350 17 GM POWD.PACK PO SCH (08:33)
[2017-12-08 09:03] LABS: HCT 34.6 % (34.0-46.0); HGB 11.7 gm/dL (11.4-16.0); MCH 30.6 pg (25.0-35.0); MCHC 33.7 g/dL (31.0-37.0); MCV 90.8 fL (80.0-100.0); Mean Platelet Volume 7.2; Platelet Count 225 k/uL (150-450); RBC 3.82 m/uL (3.80-5.40); RDW 13.7 % (11.5-15.5); WBC 14.1 k/uL (3.8-10.6)
--- NOTE | 2017-12-08 11:25 | P.DS ---
Providers Date of admission: 12/03/17 21:31 Expected date of discharge: 12/08/17 Attending physician: Thierry Alfonso DO Consults: 12/03/17 21:36 Consult Physician Stat Consulting Provider: Reese Olivares Consult Reason/Comments: Pneumoperitoneum, ANNA Do you want consulting provider notified?: Yes, Notify in am Primary care physician: Reese Olivares - Discharge Diagnosis(es) (1) Pneumoperitoneum Current Visit: Yes Status: Acute (2) Abdominal pain Current Visit: No Status: Acute Hospital Course: The patient presented with abdominal pain and constipation. She was found to have a pneumoperitonenum on x-rays. Clinically she did not have an acute surgical abdomen. The patient was admitted, given IV hydration and antibiotics. Bowel rest. Slowly be and having some flatus. She did have some chronic constipation anyway so she was given some suppositories and then Dulcolax tablet. She began having bowel movements and by 6-2 was felt to be stable for discharge. She had had no fevers during admission and her abdominal tenderness had resolved very quickly so was not felt she needed to stay on antibiotics for a prolonged period of time as the risk outweighed the benefits. Patient Condition at Discharge: Stable Plan - Discharge Summary Discharge Rx Participant: Yes New Discharge Prescriptions: New Polyethylene Glycol 3350 [Miralax] 17 gm PO DAILY #255 gm No Action Levothyroxine Sodium [Synthroid] 25 mcg PO DAILY Atorvastatin [Lipitor] 10 mg PO HS Discharge Medication List Atorvastatin [Lipitor] 10 mg PO HS 04/25/14 [History] Levothyroxine Sodium [Synthroid] 25 mcg PO DAILY 04/25/14 [History] Polyethylene Glycol 3350 [Miralax] 17 gm PO DAILY #255 gm 12/08/17 [Rx] Follow up Appointment(s)/Referral(s): Reese Olivares MD [Primary Care Provider] - 1 Week Olga Florence DO [Family Provider] - (1-2 weeks) Activity/Diet/Wound Care/Special Instructions: Drink plenty of fluids. Follow a bland easy to digest diet for 1-2 weeks. Call or return to the emergency department if you develop fevers, chills, severe abdominal pain
--- NOTE | 2017-12-08 14:59 | PN ---
PROGRESS NOTE CHIEF COMPLAINT: Perforated viscus. HISTORY OF PRESENT ILLNESS: This lady is doing well. She is passing stool. She has had no fever or chills. She has had no nausea or vomiting. She has had no pain. PHYSICAL EXAMINATION: The abdomen is soft and nontender. Extremities are normal. Neurologically she is intact. IMPRESSION: Status post perforated viscus. PLAN: No change in program. She will probably go home today. MMODL / IJN: [id number] /
== END 2017-12-08 16:36 | disposition home or self-care (01) | DRG 394 ==
LOC: EC 17:23 → 4MS4W 21:31 → UNDODISIN 12-04 16:15
PROVIDERS: ADMIT Student in an Organized Health Care Education/Training Program; ATTEND Student in an Organized Health Care Education/Training Program
DX: K66.8 Other specified disorders of peritoneum (principal); N17.9 Acute kidney failure, unspecified; E03.9 Hypothyroidism, unspecified; E78.5 Hyperlipidemia, unspecified; I10 Essential (primary) hypertension; K59.09 Other constipation; M81.0 Age-related osteoporosis without current pathological fracture; Z79.899 Other long term (current) drug therapy; Z85.3 Personal history of malignant neoplasm of breast; Z87.11 Personal history of peptic ulcer disease; Z88.2 Allergy status to sulfonamides; Z79.890 Hormone replacement therapy
CPT/HCPCS: 36415; 51702; 51798; 74018; 74019; 74176; 74177; 80048; 80053; 81001; 81003; 82150; 83690; 85025; 85027; 87040; 96361; 96365; 96366; 96374; 96375; 96376; 99284; 99285

== ENCOUNTER → 2019-01-01 | Outpatient (CLI) | payer MEDICARE ==
--- NOTE | 2019-01-01 09:17 | MM ---
Reason for exam: additional evaluation requested from prior study. Last mammogram was performed 2 years and 1 month ago. History: Patient is postmenopausal, has history of breast cancer at age 48, and had first child at age 30. Family history of breast cancer in maternal aunt at age 60. Excisional biopsy of the left breast, August 26, 2004. Malignant stereotactic core biopsy of the left breast, August 12, 2004. Lumpectomy of the left breast, 2004. Radiation therapy of the left breast, 2004. Core biopsy of the left breast. Took tamoxifen for 5 years beginning at age 50. Physical Findings: Nurse did not find any significant physical abnormalities on exam. MG 3D Diag Mammo W/Cad JOVITA Bilateral CC and MLO view(s) were taken. Prior study comparison: December 15, 2016, bilateral MG 3d diag mammo w/cad JOVITA. December 04, 2014, bilateral MG diagnostic mammo w CAD JOVITA. The breast tissue is heterogeneously dense. This may lower the sensitivity of mammography. Post surgical and post therapy change left breast unchanged. Far posterior surgical scar. No significant new findings when compared with previous films. These results were verbally communicated with the patient and result sheet given to the patient on 01/01/19. ASSESSMENT: Benign, BI-RAD 2 RECOMMENDATION: Routine screening mammogram of both breasts in 1 year.
--- NOTE | 2019-01-01 22:02 | BD ---
EXAMINATION TYPE: Axial Bone Density DATE OF EXAM: 01/01/2019 COMPARISON: NONE CLINICAL HISTORY: 63-year-old female known osteoporosis Height: 5 FT 1 1/4 IN Weight: 134 FRAX RISK QUESTIONS: Family History (Parent hip fracture): YES Secondary Osteoporosis: RISK FACTORS HISTORY OF: Family History of Osteoporosis: YES Active: YES Postmenopausal woman: EARLY 48 'S MEDICATIONS: Thyroid Medications: YES Which medication: SYNTHROID How Long: STATES 15 YEARS Additional Medications: SYNTHROID, ATORVASTAIN, Additional History: COLON RESECTION 2018 BREAST CANCER 2005 EXAM MEASUREMENTS: Bone mineral densitometry was performed using the [employer] System. Bone mineral density as measured about the Lumbar spine is: ----- L1-L4(G/cm2): 0.971 T Score Values are as follows: ----- L2: -2.3 ----- L3: -1.5 ----- L4: -1.8 ----- L1-L4: -1.7 Bone mineral density has: ZERO CHANGE % since study of: 2016 Bone mineral density about the R hip (g/cm2): 0.646 Bone mineral density about the L hip (g/cm2): 0.693 T Score values are as follows: -----R Neck: -2.8 -----L Neck: -2.5 -----R Total: -2.5 -----L Total: -2.3 Bone mineral density has: DECREASED -2.5 % since study of: 2017 IMPRESSION: Osteoporosis (T Score less than -2.5). There is increased fracture risk and therapy is usually indicated based on age. Re-Screen 1-2 years. NOTE: T-SCORE=SD OF THE YOUNG ADULT MEAN.
== END | disposition home or self-care (01) ==
LOC: RADMAMWWP 07:39
PROVIDERS: ATTEND Family Medicine
DX: Z85.3 Personal history of malignant neoplasm of breast (principal); M81.0 Age-related osteoporosis without current pathological fracture
CPT/HCPCS: 77080; 77066; G0279; 77062

== ENCOUNTER → 2019-01-23 | Outpatient (CLI) | payer MEDICARE ==
[~2019-01-23] MED LIST changes: +DENOSUMAB 60 MG/ML 1 ML SYRINGE SQ NR; -DENOSUMAB 60 MG/ML 1 ML SYRINGE SQ ONE
[2019-01-23 13:41] VITALS: BP 106/63; PULSE 64; RESP 16; TEMP 98
== END | disposition home or self-care (01) ==
LOC: PROCWHC3 13:30
PROVIDERS: ATTEND Family Medicine
DX: M81.0 Age-related osteoporosis without current pathological fracture (principal)
CPT/HCPCS: 96372; J0897

== ENCOUNTER 2019-05-05 21:16 | Emergency (ER) | payer MEDICARE ==
[2019-05-05 21:23] VITALS: BP 102/62; RESP 18; TEMP 97.8
--- NOTE | 2019-05-05 21:51 | ED ---
URI HPI - General Chief Complaint: Upper Respiratory Infection Stated Complaint: Cough Time Seen by Provider: 05/05/19 21:25 Source: patient Mode of arrival: ambulatory Limitations: no limitations - History of Present Illness Initial Comments: 63-year-old female patient presents to the emergency department today for evaluation of cough. Patient states for the last 10 days she has been sick with upper respiratory symptoms including nasal congestion and cough. Patient states that she feels that his moved into her chest. States that she has had a dry cough and is unable to expectorate any sputum. She reports chills states temperature has been around 100 intermittently. She denies any shortness of breath with this. States she does occasionally hear wheezing. Denies any history of smoking. States she has been taking Mucinex and Claritin without much relief. She is up-to-date on immunizations including pneumonia and influenza vaccines. Patient denies any recent rash, chest pain, abdominal pain, nausea, vomiting, diarrhea, constipation, back pain, numbness, tingling, dizziness, weakness, hematuria, dysuria, urinary urgency, urinary frequency, headache, visual changes, or any other complaints. - Related Data Home Medications Medication Instructions Recorded Confirmed Atorvastatin [Lipitor] 10 mg PO HS 04/25/14 01/23/19 Levothyroxine Sodium [Synthroid] 25 mcg PO DAILY 04/25/14 01/23/19 Calcium Citrate/Vitamin D3 1 tab PO DAILY 01/23/19 01/23/19 [Calcitrate + Vit D Caplet] Previous Rx's Medication Instructions Recorded Polyethylene Glycol 3350 [Miralax] 17 gm PO DAILY #255 gm 12/08/17 Albuterol Sulfate [Proair Hfa] 1 - 2 puff INHALATION Q6HR PRN #1 05/05/19 inhaler Azithromycin 250 mg PO DAILY 4 Days #4 tab 05/05/19 predniSONE 50 mg PO DAILY #4 tablet 05/05/19 Allergies Allergy/AdvReac Type Severity Reaction Status Date / Time Sulfa (Sulfonamide Allergy Rash/Hives/ Verified 01/23/19 13:36 Antibiotics) Fever Review of Systems ROS Statement: Those systems with pertinent positive or pertinent negative responses have been documented in the HPI. ROS Other: All systems not noted in ROS Statement are negative. Past Medical History Past Medical History: Cancer, Hyperlipidemia, Hypertension, Thyroid Disorder Additional Past Medical History / Comment(s): breast ca, constipation History of Any Multi-Drug Resistant Organisms: None Reported Past Surgical History: Breast Surgery Past Psychological History: No Psychological Hx Reported Smoking Status: Never smoker - Past Family History Father Additional Family Medical History / Comment(s): throat cancer Mother Family Medical History: CVA/TIA General Exam Limitations: no limitations General appearance: alert, in no apparent distress, other (Physical well- developed, well-nourished adult female patient in no acute distress. Vital signs upon presentation are temperature 97.8F, pulse 67, respirations 18, blood pressure 102/62, pulse ox 97% on room air.) Eye exam: Present: normal appearance, PERRL, EOMI. Absent: scleral icterus, conjunctival injection, periorbital swelling ENT exam: Present: normal exam, normal oropharynx, mucous membranes moist Respiratory exam: Present: normal lung sounds bilaterally. Absent: respiratory distress, wheezes, rales, rhonchi, stridor Cardiovascular Exam: Present: regular rate, normal rhythm, normal heart sounds. Absent: systolic murmur, diastolic murmur, rubs, gallop, clicks GI/Abdominal exam: Present: soft, normal bowel sounds. Absent: distended, tenderness, guarding, rebound, rigid Neurological exam: Present: alert, oriented X3, CN II-XII intact Psychiatric exam: Present: normal affect, normal mood Skin exam: Present: warm, dry, intact, normal color. Absent: rash Course Vital Signs 05/05/19 21:21 Temperature 97.8 F Pulse Rate 67 Respiratory 18 Rate Blood Pressure 102/62 O2 Sat by Pulse 97 Oximetry Medical Decision Making - Medical Decision Making 63-year-old female patient presents to the emergency department today for evaluation of dry cough for the last 10 days. Patient was initially sick with upper respiratory symptoms which are improving except the cough has persisted a nd worsened. Lungs are clear to auscultation with good air movement. Vital signs are satisfactory with good oxygen saturation. Chest x-ray shows no acute cardiopulmonary process. She is not short of breath and there is no wheezing. We'll treat for acute bronchitis. She'll be given a Z-Bo, steroids, and Pro Air inhaler. She is instructed to follow-up with her primary care physician for recheck in 1-2 days. Return parameters were discussed in detail. She verbalizes understanding and agrees with this plan - Radiology Data Radiology results: report reviewed, image reviewed Two-view x-ray of the chest is obtained. Report was reviewed in its entirety. Impression by Dr. Guzman shows no active cardiopulmonary disease. No change. Disposition Clinical Impression: Acute bronchitis Disposition: HOME SELF-CARE Condition: Good Instructions (If sedation given, give patient instructions): Acute Bronchitis (ED) Additional Instructions: Take medications as directed. Follow up with your primary care physician for recheck in 1-2 days. Return to the emergency department for any new, worsening, or concerning symptoms. Prescriptions: Azithromycin 250 mg PO DAILY 4 Days #4 tab predniSONE 50 mg PO DAILY #4 tablet Albuterol Sulfate [Proair Hfa] 1 - 2 puff INHALATION Q6HR PRN #1 inhaler PRN Reason: Shortness Of Breath Is patient prescribed a controlled substance at d/c from ED?: No Referrals: Reese Olivares MD [Primary Care Provider] - 1-2 days Time of Disposition: 22:02
--- NOTE | 2019-05-05 21:52 | XR ---
EXAMINATION TYPE: XR chest 2V DATE OF EXAM: 05/05/2019 COMPARISON: 11/27/2017 HISTORY: Cough and congestion TECHNIQUE: Frontal and lateral views of the chest are obtained. FINDINGS: There is no heart failure nor confluent pneumonic infiltrate. Costophrenic angles are kristen r. Bony thorax is intact. IMPRESSION: No active cardiopulmonary disease. No change.
[2019-05-05] MEDS ORDERED: AZITHROMYCIN 500 MG TAB PO STA (21:56)
[2019-05-05] MEDS ORDERED: predniSONE 50 MG TAB PO STA (21:56)
[2019-05-05 22:15] VITALS: PULSE 70
== END 2019-05-05 22:21 | disposition home or self-care (01) ==
LOC: EC 21:16
DX: J20.9 Acute bronchitis, unspecified (principal); E78.5 Hyperlipidemia, unspecified; E07.9 Disorder of thyroid, unspecified; I10 Essential (primary) hypertension; Z79.890 Hormone replacement therapy; Z79.899 Other long term (current) drug therapy; Z88.2 Allergy status to sulfonamides; Z85.3 Personal history of malignant neoplasm of breast
CPT/HCPCS: 71046; 99283; J7512

== ENCOUNTER 2019-07-07 19:37 | Emergency (ER) | payer MEDICARE ==
[2019-07-07 20:35] VITALS: TEMP 98.2
--- NOTE | 2019-07-07 21:10 | XR ---
EXAMINATION TYPE: XR chest 2V DATE OF EXAM: 07/07/2019 COMPARISON: 04/27/2019 HISTORY: Cough and congestion TECHNIQUE: 2 views FINDINGS: Heart is normal. Lungs are clear of consolidation. There is no pleural effusion. There are no hilar masses. Bony thorax is intact. IMPRESSION: No active cardiopulmonary disease. No change.
[2019-07-07 22:39] VITALS: RESP 18
[2019-07-07] MEDS ORDERED: DEXAMETHASONE SOD PHOSPHATE 10 MG/ML 1 ML VIAL IM STA (22:48)
[2019-07-07] MEDS ORDERED: AZITHROMYCIN 500 MG TAB PO STA (22:49)
--- NOTE | 2019-07-07 22:50 | ED ---
URI HPI - General Chief Complaint: Upper Respiratory Infection Stated Complaint: cough Time Seen by Provider: 07/07/19 22:09 Source: patient, RN notes reviewed, old records reviewed Mode of arrival: ambulatory Limitations: no limitations - History of Present Illness Initial Comments: This is a 63-year-old female DF for evaluation cough congestion runny nose sore throat. Patient the nonsmoker Rosario is no travel history no sick contacts. Patient denying chest pain. Medical history significant for high blood pressure by cholesterol. Patient is no acute distress denying current shortness of breath MD Complaint: fever, cough, sore throat, nasal congestion -: week(s) Severity: mild Severity scale (1-10): 3 Consistency: constant Improves With: nothing Worsens With: nothing Context: recent travel Associated Symptoms: myalgias, rhinorrhea, nasal congestion, cough Treatments Prior to Arrival: none - Related Data Home Medications Medication Instructions Recorded Confirmed Atorvastatin [Lipitor] 10 mg PO DAILY 04/25/14 07/07/19 Levothyroxine Sodium [Synthroid] 25 mcg PO DAILY 04/25/14 07/07/19 Previous Rx's Medication Instructions Recorded Albuterol Sulfate [Proair Hfa] 1 - 2 puff INHALATION Q4H PRN #1 07/07/19 inhaler Azithromycin [Zithromax Z-pack] 0 mg PO DIRECTED #1 pack 07/07/19 Cetirizine HCl/Pseudoephedrine 1 each PO BID #20 tab.er.12h 07/07/19 [Zyrtec-D Tablet] Allergies Allergy/AdvReac Type Severity Reaction Status Date / Time Sulfa (Sulfonamide Allergy Rash/Hives/ Verified 07/07/19 22:38 Antibiotics) Fever Review of Systems ROS Statement: Those systems with pertinent positive or pertinent negative responses have been documented in the HPI. ROS Other: All systems not noted in ROS Statement are negative. Past Medical History Past Medical History: Cancer, Hyperlipidemia, Hypertension, Thyroid Disorder Additional Past Medical History / Comment(s): breast ca, constipation History of Any Multi-Drug Resistant Organisms: None Reported Past Surgical History: Breast Surgery Past Psychological History: No Psychological Hx Reported Smoking Status: Never smoker Past Alcohol Use History: None Reported Past Drug Use History: None Reported - Past Family History Father Additional Family Medical History / Comment(s): throat cancer Mother Family Medical History: CVA/TIA General Exam Limitations: no limitations General appearance: alert, in no apparent distress Head exam: Present: atraumatic, normocephalic, normal inspection Eye exam: Present: normal appearance, PERRL, EOMI. Absent: scleral icterus, conjunctival injection, periorbital swelling ENT exam: Present: normal exam, mucous membranes moist Neck exam: Present: normal inspection. Absent: tenderness, meningismus, lymphadenopathy Respiratory exam: Present: normal lung sounds bilaterally. Absent: respiratory distress, wheezes, rales, rhonchi, stridor Cardiovascular Exam: Present: regular rate, normal rhythm, normal heart sounds. Absent: systolic murmur, diastolic murmur, rubs, gallop, clicks GI/Abdominal exam: Present: soft, normal bowel sounds. Absent: distended, tenderness, guarding, rebound, rigid Extremities exam: Present: normal inspection, full ROM, normal capillary refill. Absent: tenderness, pedal edema, joint swelling, calf tenderness Back exam: Present: normal inspection Neurological exam: Present: alert, oriented X3, CN II-XII intact Psychiatric exam: Present: normal affect, normal mood Skin exam: Present: warm, dry, intact, normal color. Absent: rash Course Vital Signs 07/07/19 07/07/19 07/07/19 20:33 22:15 23:02 Temperature 98.2 F Pulse Rate 76 82 Respiratory 20 18 18 Rate Blood Pressure 107/71 99/64 O2 Sat by Pulse 99 95 Oximetry Medical Decision Making - Medical Decision Making 53 female DF, no acute distress coming in for cough congestion runny nose. Some sinus congestion pain. Appropriate for infection sinusitis. Flu and x-ray are negative - Lab Data Lab Results 07/07/19 Range/Units 20:40 Influenza Type A RNA Not Detected (Not Detectd) Influenza Type B (PCR) Not Detected (Not Detectd) - Radiology Data Radiology results: report reviewed (Chest x-rays negative for acute disease), image reviewed Disposition Clinical Impression: Sinusitis, Bronchitis Disposition: HOME SELF-CARE Condition: Good Instructions (If sedation given, give patient instructions): Upper Respiratory Infection (ED) Prescriptions: Albuterol Sulfate [Proair Hfa] 1 - 2 puff INHALATION Q4H PRN #1 inhaler PRN Reason: Shortness Of Breath Azithromycin [Zithromax Z-pack] 0 mg PO DIRECTED #1 pack Cetirizine HCl/Pseudoephedrine [Zyrtec-D Tablet] 1 each PO BID #20 tab.er.12h Is patient prescribed a controlled substance at d/c from ED?: No Referrals: Reese Olivares MD [Primary Care Provider] - 1-2 days
[2019-07-07 23:07] VITALS: BP 99/64; PULSE 82
== END 2019-07-07 23:06 | disposition home or self-care (01) ==
LOC: EC 19:37
DX: J40 Bronchitis, not specified as acute or chronic (principal); J32.9 Chronic sinusitis, unspecified; E78.5 Hyperlipidemia, unspecified; I10 Essential (primary) hypertension; E07.9 Disorder of thyroid, unspecified; Z79.890 Hormone replacement therapy; Z79.899 Other long term (current) drug therapy; Z88.2 Allergy status to sulfonamides; Z85.3 Personal history of malignant neoplasm of breast
CPT/HCPCS: 87502; 71046; 99284; 96372; J1100

== ENCOUNTER → 2019-08-19 | Outpatient (CLI) | payer MEDICARE ==
[2019-08-19 08:46] VITALS: BP 107/66; PULSE 60; RESP 16; TEMP 98.1
== END | disposition home or self-care (01) ==
LOC: PROCWHC3 08:19
PROVIDERS: ATTEND Family Medicine
DX: M81.0 Age-related osteoporosis without current pathological fracture (principal)
CPT/HCPCS: 96372; J0897

== ENCOUNTER → 2020-03-02 | Outpatient (CLI) | payer MEDICARE ==
[2020-03-02 08:52] VITALS: BP 106/65; PULSE 54; RESP 16; TEMP 97.5
== END | disposition home or self-care (01) ==
LOC: PROCWHC3 08:37
PROVIDERS: ATTEND Family Medicine
DX: M81.0 Age-related osteoporosis without current pathological fracture (principal)
CPT/HCPCS: 96372; J0897

== ENCOUNTER → 2020-04-21 | Outpatient (CLI) | payer MEDICARE ==
--- NOTE | 2020-04-21 11:57 | MM ---
Reason for exam: additional evaluation requested from prior study. Last mammogram was performed 1 year and 4 months ago. History: Patient is postmenopausal, has history of breast cancer at age 48, and had first child at age 30. Family history of breast cancer in maternal aunt at age 60. Excisional biopsy of the left breast, August 26, 2004. Malignant stereotactic core biopsy of the left breast, August 12, 2004. Lumpectomy of the left breast, 2004. Radiation therapy of the left breast, 2004. Core biopsy of the left breast. Took tamoxifen for 5 years beginning at age 50. Physical Findings: Nurse did not find any significant physical abnormalities on exam. MG 3D Diag Mammo W/Cad JOVITA Bilateral CC and MLO view(s) were taken. Prior study comparison: January 01, 2019, bilateral MG 3d diag mammo w/cad JOVITA. December 15, 2016, bilateral MG 3d diag mammo w/cad JOVITA. The breast tissue is heterogeneously dense. This may lower the sensitivity of mammography. Unchanged lumpectomy change left breast posterior. Benign bilateral calcifications. No significant new findings when compared with previous films. These results were verbally communicated with the patient and result sheet given to the patient on 04/21/20. ASSESSMENT: Benign, BI-RAD 2 RECOMMENDATION: Routine screening mammogram of both breasts in 1 year.
== END | disposition home or self-care (01) ==
LOC: RADMAMWWP 10:22
PROVIDERS: ATTEND Family Medicine
DX: Z08 Encounter for follow-up examination after completed treatment for malignant neoplasm (principal); Z85.3 Personal history of malignant neoplasm of breast
CPT/HCPCS: 77066; G0279; 77062

== ENCOUNTER → 2020-09-03 | Outpatient (CLI) | payer MEDICARE ==
[2020-09-03 09:12] VITALS: BP 113/64; PULSE 62; RESP 16; TEMP 98.1
== END | disposition home or self-care (01) ==
LOC: PROCWHC3 09:01
PROVIDERS: ATTEND Family Medicine
DX: M81.0 Age-related osteoporosis without current pathological fracture (principal)
CPT/HCPCS: 96372; J0897

== ENCOUNTER → 2021-03-04 | Outpatient (CLI) | payer MEDICARE ==
[~2021-03-04] MED LIST changes: -DENOSUMAB 60 MG/ML 1 ML SYRINGE SQ NR; +DENOSUMAB 60 MG/ML 1 ML SYRINGE SQ ONE
[2021-03-04 08:25] VITALS: BP 108/64; PULSE 66; RESP 15; TEMP 98.5
== END ==
LOC: PROCWHC3 08:11
PROVIDERS: ATTEND Family Medicine
DX: M81.0 Age-related osteoporosis without current pathological fracture (principal); Z88.2 Allergy status to sulfonamides
CPT/HCPCS: 96372; J0897

== ENCOUNTER → 2021-03-24 | Outpatient (CLI) | payer MEDICARE ==
--- NOTE | 2021-03-24 18:46 | BD ---
EXAMINATION TYPE: Axial Bone Density DATE OF EXAM: 03/24/2021 COMPARISON: 01.01.2019 CLINICAL HISTORY: 65 YR OLD FEMALE......ICD-10 CODE: Z79.899 OSTEOPOROSIS WITH TREATMENT Height: 60.2 Weight: 129 FRAX RISK QUESTIONS: Family History (Parent hip fracture): YES RISK FACTORS HISTORY OF: Family History of Osteoporosis: FAMILY HX OF MOTHER WITH RT HIP FX Postmenopausal woman: YES, AT AGE 54 YRS OLD Lost more than 2 inches in height since high school: YES Hyperparathyroidism: NO Adrenal Insufficiency: NO MEDICATIONS: Thyroid Medications: YES, SYNTHROID, FOR ABOUT 10 YRS Osteoporosis Medications: FOSAMAX FOR ABOUT 5 YRS, PROLIA FOR 2-3 YRS, CURRENTLY TAKNING Additional Medications: HX OF RADIATION, BR CA, STATIN FOR CHOLESTEROL, VIT D AND CALCIUM Additional History: HX OF BREAST CANCER, CHOLESTEROL, OSTEOPOROSIS, THYROID EXAM MEASUREMENTS: Bone mineral densitometry was performed using the [employer] System. Bone mineral density as measured about the Lumbar spine is: ----- L1-L4(G/cm2): 1.047 T Score Values are as follows: ----- L1: -1.4 ----- L2: -1.2 ----- L3: -0.9 ----- L4: -1.1 ----- L1-L4: -1.1 Bone mineral density has: Increased 8.9% since study of: 01.01.2019 Bone mineral density about the R hip (g/cm2): 0.711 Bone mineral density about the L hip (g/cm2): 0.747 T Score values are as follows: -----R Neck: -2.5 -----L Neck: -2.3 -----R Total: -2.4 -----L Total: -2.1 Bone mineral density has: Increased 4.1% since study of: 01.01.2019 FRAX%s: THERE IS A 23.9% CHANCE FOR A MAJOR OSTEOPOROTIC FX AND A 4.9% FOR HIP......PROBABILITY F OR FX IN 10 YRS TIME IMPRESSION: Osteoporosis (T Score less than -2.5). There is increased fracture risk and therapy is usually indicated based on age. Re-Screen 1-2 years. NOTE: T-SCORE=SD OF THE YOUNG ADULT MEAN.
== END | disposition home or self-care (01) ==
LOC: RADBDWWP 07:09
PROVIDERS: ATTEND Family Medicine
DX: M81.0 Age-related osteoporosis without current pathological fracture (principal); Z85.3 Personal history of malignant neoplasm of breast; Z79.899 Other long term (current) drug therapy
CPT/HCPCS: 77080

== ENCOUNTER → 2021-09-07 | Outpatient (CLI) | payer MEDICARE ==
[~2021-09-07] MED LIST changes: +DENOSUMAB 60 MG/ML 1 ML SYRINGE SQ NR; -DENOSUMAB 60 MG/ML 1 ML SYRINGE SQ ONE
[2021-09-07 09:34] VITALS: BP 109/65; PULSE 60; RESP 15; TEMP 98.1
== END ==
LOC: PROCWHC3 09:12
PROVIDERS: ATTEND Family Medicine
DX: M81.0 Age-related osteoporosis without current pathological fracture (principal); Z88.2 Allergy status to sulfonamides
CPT/HCPCS: 96372; J0897

== ENCOUNTER → 2022-01-24 | Outpatient (CLI) | payer MEDICARE ==
--- NOTE | 2022-01-24 11:32 | MM ---
Reason for Exam: Hx of breast cancer, conservation therapy. Last mammogram was performed 1 year(s) and 9 month(s) ago. Patient History: Menarche at age 12. First Full-Term at age 31. Late child-bearing (after 28). Left ovary removed at age 60. Right ovary removed at age 60. Hysterectomy at age 60. Postmenopausal. Breast cancer, age 48. Tamoxifen, starting at age 50 for 5 years. 2020, Lumpectomy on the Left side. 08/26/2004, Excisional Biopsy on the Left side. Core Biopsy on the Left side. 2004, Lumpectomy on the Left side. 08/12/2004, Malignant Stereotactic Core Biopsy on the left side. 02/2021, Implant Removal on the left side. 2004, Radiation Therapy on the left side. 01/2021, Bilateral Implants. Maternal aunt had breast cancer, age 60. Prior Study Comparison: 12/15/2016 Bilateral Diagnostic Mammogram, [facility]. 01/01/2019 Bilateral Diagnostic Mammogram, [facility]. 04/21/2020 Bilateral Diagnostic Mammogram, [facility]. Tissue Density: The breast tissue is heterogeneously dense. This may lower the sensitivity of mammography. Findings: No significant changes when compared with prior studies. There are benign appearing calcifications bilaterally. Overall Assessment: Benign, BI-RAD 2 Management: Screening Mammogram of both breasts in 1 year. A clinical breast exam by your physician is recommended on an annual basis and results should be correlated with mammographic findings. This exam should not preclude additional follow-up of suspicious palpable abnormalities. Results were given to the patient verbally at the time of exam. Electronically signed and approved by: Larry Herzog M.D. Radiologis
== END | disposition home or self-care (01) ==
LOC: RADMAMWWP 07-21 07:46
PROVIDERS: ATTEND Family Medicine
DX: R92.8 Other abnormal and inconclusive findings on diagnostic imaging of breast (principal); Z78.0 Asymptomatic menopausal state; Z80.3 Family history of malignant neoplasm of breast
CPT/HCPCS: 77066; G0279; 77062

== ENCOUNTER → 2022-03-15 | Outpatient (CLI) | payer MEDICARE ==
[2022-03-15 08:19] VITALS: BP 107/65; PULSE 58; RESP 15; TEMP 98
== END ==
LOC: PROCWHC3 08:09
PROVIDERS: ATTEND Family Medicine
DX: M81.0 Age-related osteoporosis without current pathological fracture (principal); Z88.2 Allergy status to sulfonamides
CPT/HCPCS: 96372; J0897

== ENCOUNTER → 2023-03-21 | Outpatient (CLI) | payer MEDICARE ==
[2023-03-21 11:24] VITALS: BP 108/67; PULSE 53; RESP 16; TEMP 98.3
== END ==
LOC: PROCWHC3 11:07
PROVIDERS: ATTEND Nurse Practitioner Family
DX: M81.0 Age-related osteoporosis without current pathological fracture (principal)
CPT/HCPCS: 96372; J0897

== ENCOUNTER → 2023-03-29 | Outpatient (CLI) | payer MEDICARE ==
--- NOTE | 2023-03-29 08:14 | MM ---
Reason for Exam: Hx of breast augmentation, asymptomatic. Last mammogram was performed 1 year(s) and 2 month(s) ago. Patient History: Menarche at age 12. First Full-Term at age 31. Late child-bearing (after 28). Left ovary removed at age 60. Right ovary removed at age 60. Hysterectomy at age 60. Postmenopausal. Breast cancer, age 48. Tamoxifen, starting at age 50 for 5 years. 2020, Lumpectomy on the Left side. 08/26/2004, Excisional Biopsy on the Left side. Core Biopsy on the Left side. 2004, Lumpectomy on the Left side. 08/12/2004, Malignant Stereotactic Core Biopsy on the left side. 02/2021, Implant Removal on the left side. 2004, Radiation Therapy on the left side. 01/2021, Bilateral Implants. Maternal aunt had breast cancer, age 60. Prior Study Comparison: 01/01/2019 Bilateral Diagnostic Mammogram, [facility]. 04/21/2020 Bilateral Diagnostic Mammogram, [facility]. 01/24/2022 Bilateral MG 3D diag mammo imp w/cad JOVITA, [facility]. Tissue Density: There are scattered fibroglandular densities. Findings: Analyzed By CAD. Left breast implant has been removed and subsequently there is marked difficulty in imaging the left breast. The left breast is barely included on the [id number] and therefore imaging of the left breast is considered nondiagnostic. Right breast implant is noted to be in place. There is no evidence for right-sided mass or distortion. No right-sided suspicious calcifications are seen. Overall Assessment: Incomplete: need additional imaging evaluation, BI-RAD 0 Management: Diagnostic Breast MRI of both breasts. . Patient should continue monthly self-breast exams. A clinical breast exam by your physician is recommended on an annual basis. This exam should not preclude additional follow-up of suspicious palpable abnormalities. Note on Thea scores and lifetime risk: 1. A Thea score greater than 3% is considered moderate risk. If this is the case, consider specialist referral to assess eligibility for a risk reducing agent. 2. If overall lifetime risk for the development of breast cancer is 20% or higher, the patient may qualify for future screening with alternating mammogram and breast MRI. Electronically signed and approved by: Bne Rascon M.D. Radiologis
--- NOTE | 2023-03-29 10:51 | BD ---
EXAMINATION TYPE: Axial Bone Density DATE OF EXAM: 03/29/2023 CLINICAL HISTORY: 67 years old Female. ICD-10 CODE: M81.0 osteoporosis Height: 60.7 in Weight: 134 lbs FRAX RISK QUESTIONS: Family History (Parent hip fracture): yes mother RISK FACTORS HISTORY OF: Active: yes Postmenopausal woman: age 47; total hysterectomy age 62 MEDICATIONS: Thyroid Medications: yes Which medication: Levothyroxine How Lon+ years Osteoporosis Medications: yes Which medication: Prolia How Lon years Additional Medications: calcium, vit d, atorvastatin Additional History: breast cancer with radiation EXAM MEASUREMENTS: Bone mineral densitometry was performed using the [email or web address] System. Bone mineral density as measured about the Lumbar spine is: ----- L1-L4(G/cm2): 1.060 T Score Values are as follows: ----- L1: -1.4 ----- L2: -1.2 ----- L3: -0.8 ----- L4: -0.9 ----- L1-L4: -1.0 Z Score Values are as follows: ----- L1: 0.4 ----- L2: 0.6 ----- L3: 1.0 ----- L4: 0.9 ----- L1-L4: 0.8 Bone mineral density has: Increased 1.2% since study of: 03/24/2021 Bone mineral density about the R hip (g/cm2): 0.729 Bone mineral density about the L hip (g/cm2): 0.740 T Score values are as follows: -----R Neck: -2.7 -----L Neck: -2.5 -----R Total: -2.2 -----L Total: -2.1 Z Score values are as follows: -----R Neck: -1.0 -----L Neck: -0.8 -----R Total: -0.7 -----L Total: -0.6 Bone mineral density has: Increased 0.7% since study of: 03/24/2021 FRAX%s: The graph provided illustrates a 26.5% chance for a major osteoporotic fx and a 9.0% chance f or the hips probability for fx in 10 years time. IMPRESSION: Osteopenia (T Score between -2.5 and -1). There is slightly increased risk of fracture and the patient may be considered for treatment. Re-Screen 2-5 years. NOTE: T-SCORE=SD OF THE YOUNG ADULT MEAN.
== END | disposition home or self-care (01) ==
LOC: RADBDWWP 07:17
PROVIDERS: ATTEND Family Medicine
DX: Z12.31 Encounter for screening mammogram for malignant neoplasm of breast (principal); M81.0 Age-related osteoporosis without current pathological fracture; M85.89 Other specified disorders of bone density and structure, multiple sites; Z78.0 Asymptomatic menopausal state; Z98.82 Breast implant status; Z85.3 Personal history of malignant neoplasm of breast; Z80.3 Family history of malignant neoplasm of breast
CPT/HCPCS: 77063; 77067; 77080

== ENCOUNTER → 2023-09-27 | Outpatient (CLI) | payer MEDICARE ==
[2023-09-27] MEDS: DENOSUMAB 60 MG/ML 1 ML SYRINGE SQ NR (12:35)
[2023-09-27 12:43] VITALS: BP 99/59; PULSE 65; RESP 16; TEMP 97.8
== END ==
LOC: PROCWHC3 12:21
PROVIDERS: ATTEND Physician Assistant
DX: M81.0 Age-related osteoporosis without current pathological fracture (principal)
CPT/HCPCS: 96372; J0897

== ENCOUNTER → 2023-11-30 | Outpatient (CLI) | payer MEDICARE ==
--- NOTE | 2023-12-01 16:47 | XR ---
EXAMINATION TYPE: XR thoracic spine 2V DATE OF EXAM: 11/30/2023 COMPARISON: None HISTORY: Osteoporosis TECHNIQUE: Three-view thoracic spine FINDINGS: There are 12 thoracic type vertebral bodies. Pedicles are intact. There is mild disc space narrowing. Minimal spondylosis within the mid thoracic spine. Vertebral body heights are preserved. IMPRESSION: 1. No acute osseous abnormality thoracic spine.
--- NOTE | 2023-12-01 16:49 | XR ---
EXAMINATION TYPE: XR cervical spine comp DATE OF EXAM: 11/30/2023 COMPARISON: None HISTORY: Kyphosis, scoliosis TECHNIQUE: 5 view cervical spine FINDINGS: There is loss of disc height at C3-4 through C6-7. Retrolisthesis of C5 on C6 is present. A nterior vertebral body spurring is present C3-C7. Posterior spinal lamellar line is intact. Facet joseline nges are present. Some foraminal narrowing is present on the right at C6-7. Left foraminal narrowing is present at C5-6. IMPRESSION: 1. Mild foraminal narrowing left C5-6 and right C6-7. Correlate for radicular symptoms. 2. Retrolisthesis of C5 posterior on C6. 3. Multilevel degenerative disc changes
== END | disposition home or self-care (01) ==
LOC: RADXRMAIN 17:00
PROVIDERS: ATTEND Nurse Practitioner Family
DX: M43.12 Spondylolisthesis, cervical region (principal); M47.812 Spondylosis without myelopathy or radiculopathy, cervical region; M81.0 Age-related osteoporosis without current pathological fracture
CPT/HCPCS: 72050; 72070

== ENCOUNTER → 2024-04-01 | Outpatient (CLI) | payer MEDICARE ==
[2024-04-01] MEDS: DENOSUMAB 60 MG/ML 1 ML SYRINGE SQ NR (14:35)
[2024-04-01 14:41] VITALS: BP 113/63; PULSE 86; RESP 16; TEMP 98
== END ==
LOC: PROCWHC3 14:35
PROVIDERS: ATTEND Physician Assistant
DX: M81.0 Age-related osteoporosis without current pathological fracture (principal)
CPT/HCPCS: 96372

== ENCOUNTER 2024-10-03 11:25 | Outpatient (CLI) | payer MEDICARE ==
[2024-10-03 12:02] VITALS: BP 106/66; PULSE 70; RESP 16; TEMP 97.9
[2024-10-03] MEDS: DENOSUMAB 60 MG/ML 1 ML SYRINGE SQ NR (12:04)
== END 2024-10-03 13:27 | disposition home or self-care (01) ==
LOC: PROCWHC3 11:25
PROVIDERS: ATTEND Family Medicine
DX: M81.0 Age-related osteoporosis without current pathological fracture (principal)
CPT/HCPCS: 96372; J0897